=== PATIENT | male | born 1960 | race Caucasian/White ===

== ENCOUNTER 2023-06-18 01:36 | Day surgery (SDC) | payer OTHER, SELFPAY ==
[2023-05-31 08:57] VITALS: BMI 27.0
--- NOTE | 2023-06-17 09:14 | SUR.PREOP ---
Patient called regarding upcoming procedure. Message left on patient's voicemail regarding preop instructions, appointment times, and procedure prep.
[2023-06-18 10:19] VITALS: BP 131/75; PULSE 91; RESP 17; TEMP 36.2; O2SAT 97; BMI 27.6
[2023-06-18 10:33] LABS: Glucose Point of Care 93 mg/dl (65-105)
[2023-06-18] MEDS: LACTATED RINGERS 1,000 ML 150 ML IV CONT (10:33)
--- NOTE | 2023-06-18 10:39 | WPDANESEPPF ---
Anes - Initial Pre Proc Eval Procedure: Operation Date: 06/18/23 11:30 Proposed Procedures p Colonoscopy - Eduin Sofia MD Date/Time: 06/18/23 10:39 Surgeon: Eduin Sofia MD Pre Op Diagnosis: Change in bowel habit, hx of colon polyps Patient Data Age: 62 Gender: M Height: 1.85 m Weight: 95 kg Last Vital Signs Temp 97.1 F L 06/18/23 10:19 Pulse 91 06/18/23 10:19 Resp 17 06/18/23 10:19 BP 131/75 06/18/23 10:19 Pulse Ox 97 06/18/23 10:19 O2 Del Method Room Air 06/18/23 10:19 Allergies Allergy/AdvReac Type Severity Reaction Status Date / Time No Known Allergies Allergy Verified 06/18/23 10:17 Home Medications Medication Instructions Recorded Confirmed Type empagliflozin 25 mg tablet 25 mg PO DAILY 05/15/23 06/18/23 History (Jardiance) gabapentin 100 mg capsule 100 mg PO DAILY 05/15/23 06/18/23 History insulin glargine 100 unit/mL (3 10 unit subcut QPM 05/15/23 06/18/23 History mL) subcutaneous pen (Lantus Solostar U-100 Insulin) polyethylene glycol 3350 17 gram 17 g PO .Q3Days #30 ea 05/15/23 06/18/23 Rx oral powder packet (Miralax) psyllium husk 3.4 gram/5.4 gram 1 tbsp PO DAILY #660 grams 05/15/23 06/18/23 Rx oral powder (Metamucil) tamsulosin 0.4 mg capsule 0.4 mg PO DAILY 05/15/23 06/18/23 History peg 3350-electrolytes 236 240 ml PO Q10M #4,000 mL 05/16/23 06/18/23 Rx gram-22.74 gram-6.74 gram-5.86 gram solution (Golytely) Nulytely 1 dose PO ONCE #4,000 mL 06/03/23 Rx Laboratory Tests 06/18/23 10:30 POC Capillary Glucose 93 mg/dl (65-105) Patient hx anesthesia problems: none Family hx anesthesia problems: none Results Review: All pre-operative results and documents have been reviewed as part of the pre-operative evaluation. [facility] Past Medical History Medical History (Updated 05/15/23 @ 09:23 by Eduin Sofia MD) Diabetes Family History Family History (Updated 05/15/23 @ 08:59 by Anais Escobar MA) Mother History of cancer of unknown primary site Diabetes mellitus Hypertension Social History Social History (Updated 05/15/23 @ 09:00 by Anais Escobar MA) Smoking status: Never smoker Second hand tobacco smoke exposure: No Alcohol intake: never Substance use: never Living arrangements: alone Occupation/Education: occupation Gender identity (if verbalized by the patient): Male Spiritual care concerns: No Anes - Eval Final PreProcedure Day of Procedure 06/18/23 10:39 Patient weight: normal Heart: regular rate and rhythm Lungs: clear to auscultation Airway: Mallampati scale class II Neurological: alert and oriented Last oral intake: >/= 8 hours ASA classification: II Emergent: no Anesthetic plan: proceed Anesthesia type and monitoring: general GIVS and standard monitoring Results Review: All pre-operative results and documents have been reviewed as part of the pre-operative evaluation. Informed Consent: The patient's anesthetic plan and its attendant risks and benefits were discussed with the patient/family/POA. Questions were solicited and answers provided to the satisfaction of the patient/family/POA.
--- NOTE | 2023-06-18 10:47 | PM.HPGS ---
History of Present Illness History of Present Illness Consent: Risks, benefits, and alternatives have been discussed and questions answered. Patient agrees to proceed with procedure. Chief complaint: Change in bowel habit, hx of colon polyps Narrative: Phillip Mercedes is a 62 year old male Presents for colonoscopy. Patient has had a change in bowel habits. He had also has distant history of colon polyps. He notices improvement on taking fiber along with a small amount of MiraLax. He presents today for colonoscopy. Family history noncontributory. Review of Systems Review of Systems: Review of systems noncontributory. [facility] Past Medical History Medical History (Updated 05/15/23 @ 09:23 by Eduin Sofia MD) Diabetes Family History Family History (Updated 05/15/23 @ 08:59 by Anais Escobar MA) Mother History of cancer of unknown primary site Diabetes mellitus Hypertension Social History Social History (Updated 05/15/23 @ 09:00 by Anais Escobar MA) Smoking status: Never smoker Second hand tobacco smoke exposure: No Alcohol intake: never Substance use: never Living arrangements: alone Occupation/Education: occupation Gender identity (if verbalized by the patient): Male Spiritual care concerns: No Meds Home Medications and Allergies Home Medications Medication Instructions Recorded Confirmed Type empagliflozin 25 mg tablet 25 mg PO DAILY 05/15/23 06/18/23 History (Jardiance) gabapentin 100 mg capsule 100 mg PO DAILY 05/15/23 06/18/23 History insulin glargine 100 unit/mL (3 10 unit subcut QPM 05/15/23 06/18/23 History mL) subcutaneous pen (Lantus Solostar U-100 Insulin) polyethylene glycol 3350 17 gram 17 g PO .Q3Days #30 ea 05/15/23 06/18/23 Rx oral powder packet (Miralax) psyllium husk 3.4 gram/5.4 gram 1 tbsp PO DAILY #660 grams 05/15/23 06/18/23 Rx oral powder (Metamucil) tamsulosin 0.4 mg capsule 0.4 mg PO DAILY 05/15/23 06/18/23 History peg 3350-electrolytes 236 240 ml PO Q10M #4,000 mL 05/16/23 06/18/23 Rx gram-22.74 gram-6.74 gram-5.86 gram solution (Golytely) Nulytely 1 dose PO ONCE #4,000 mL 06/03/23 Rx Allergies Allergy/AdvReac Type Severity Reaction Status Date / Time No Known Allergies Allergy Verified 06/18/23 10:17 Vital Signs Vital Signs - 24 hr 06/18/23 10:19 Temperature 97.1 F L Pulse Rate 91 Respiratory Rate 17 Blood Pressure 131/75 Pulse Oximetry 97 Oxygen Delivery Room Air Exam Narrative: Physical exam reveals patient to be alert. Vital signs stable. HEENT exam is unremarkable. Patient is anicteric. Lungs are clear to auscultation and percussion. Heart is without murmur or extra sounds. Abdomen bowel sounds are present soft nontender with no organomegaly. Digital external rectal exam is normal. Assessment and Plan Assessment and plan (1) Change in bowel habit: Code(s): R19.4 - Change in bowel habit Status: Acute Assessment and Plan: Patient's bowel habits improved on taking fiber supplement such as Metamucil daily. He supplements this with MiraLax as needed. Colonoscopy requested will be performed. (2) History of colon polyps: Code(s): Z86.010 - Personal history of colonic polyps Status: Acute Assessment and Plan: Patient has distant history of colon polyps. Follow-up colonoscopy to be performed today.
[2023-06-18 11:48] VITALS: BP 100/66; PULSE 88; RESP 14; O2SAT 97
[2023-06-18 11:58] VITALS: BP 102/68; PULSE 92; RESP 21; O2SAT 97
[2023-06-18 12:04] LABS: Glucose Point of Care 89 mg/dl (65-105)
[2023-06-18 12:08] VITALS: BP 123/75; PULSE 88; RESP 20; O2SAT 97
== END 2023-06-18 12:18 | disposition home or self-care (01) ==
PROVIDERS: Visit Provider Internal Medicine Gastroenterology
PROC: 0DJD8ZZ Inspection of Lower Intestinal Tract, Via Natural or Artificial Opening Endoscopic (ICD-10-PCS; CPT 45378; principal; 2023-06-18 11:30)
DX: D12.5 Benign neoplasm of sigmoid colon (principal); K51.40 Inflammatory polyps of colon without complications; K57.30 Diverticulosis of large intestine without perforation or abscess without bleeding; K64.8 Other hemorrhoids; R19.4 Change in bowel habit; E11.9 Type 2 diabetes mellitus without complications; Z79.84 Long term (current) use of oral hypoglycemic drugs; Z79.4 Long term (current) use of insulin; Z79.899 Other long term (current) drug therapy
CPT/HCPCS: 45385; 82948; 88305; J2704; J7120

== ENCOUNTER 2024-09-23 14:09 | Outpatient (CLI) | payer MEDICARE, OTHER, SELFPAY ==
--- NOTE | ~2024-09-23 | CT_ITS ---
CLINICAL INDICATION: Abdominal distention COMPARISON: 07/09/2011. TECHNIQUE: Multiple contiguous axial images of the abdomen and pelvis were performed following the ad ministration of with 100 mL Omnipaque-350 intravenous contrast The dose-length product (DLP) was 1242.03 mGy-cm. Automated exposure control and iterative reconstruction technique were employed. FINDINGS/OBSERVATIONS: Visualized lower thorax: Elevation of the left hemidiaphragm with adjacent compressive atelectasis. The heart is enlarged, without pericardial effusion. Small hiatal hernia is present. Liver: Findings within the liver (within segments 7 and 4) consistent with patient's previously ident ified hemangiomas. The remainder of the liver demonstrates otherwise homogeneous enhancement and is not enlarged measuri ng 18 cm in longitudinal dimension. Gallbladder and biliary system: The gallbladder is surgically absent Pancreas: The pancreas enhances homogeneously without ductal dilatation. Spleen: The spleen enhances homogeneously and is borderline enlarged measuring 12 cm in longitudinal dimensio n. Kidneys: Redemonstration of parapelvic cysts within the bilateral kidneys, accentuated by the bladder distention. No hydroureter ureter is present. Additional well-circumscribed focus of decreased attenuation within the upper pole of the left kidney , representing a simple cyst which is increased in size but otherwise unchanged from 2011 examination . The remainder of the bilateral kidneys otherwise enhance symmetrically without hydronephrosis or louisa l calculi. Adrenal glands: Unremarkable. Gastrointestinal tract: Mural thickening and hyperemia of the distal stomach and duodenum, an interva l change from prior study for which duodenitis is suspected. Colonic diverticulosis without surrounding inflammatory change. Fecal stasis within the colon and rectum. Appendix: The air-filled appendix is of normal caliber (axial series, images 114 through 121). Vasculature: Unremarkable. Lymph nodes: No pathologically enlarged or morphologically suspicious lymph nodes within the retroperitoneum or at the root of the mesentery. Pelvic structures: The bladder is significantly distended, and otherwise unremarkable. The prostate gland is not enlarged, and contains bulky calcifications. Body wall and musculoskeletal: No significant degenerative disease within the lower thoracic or lumbosacral spine. IMPRESSION: Mural thickening and hyperemia of the distal stomach and duodenum, an interval change from prior stud y for which duodenitis is suspected. Significant bladder distention increasing prominence of the parapelvic cysts within the bilateral kid neys. Reviewed, dictated and finalized at location A. LE APPLICATIONS DEVELOPER IMPRESSION: Mural thickening and hyperemia of the distal stomach and duodenum, an interval change from prior study for which duodenitis is suspected. Significant bladder distention increasing prominence of the parapelvic cysts wi thin the bilateral kidneys.
[2024-09-23 14:34] LABS: Estimated Glomerular Filt Rate 55
--- OUTSIDE RECORDS SUMMARY | 2024-09-23 15:54 | XMS_ITS | Referral Summary ---
Author Organization [facility] [address] [place] [address] [place] [phone] Care Team Providers Care Agricultural Engineering Teacher Name Role Phone Aldo De La Garza MD Primary Care Provider [phone] Austyn FAY MD, Zachary Alford [phone] Encounters Date Type Department Care Team Description 09/16/2024 Telephone [facility] [address] [place] [phone] Nleida Carrizales RN 09/16/2024 Telephone [facility] Center [address] [place] [phone] Itzel Ramirez, SUSAN 09/12/2024 8:45 AM DRIVEMATIC MACHINE OPERATOR Office Visit [facility] Otolaryngology [address] [place] [phone] Zachary Zaman II, MD Post-nasal drainage (Primary Dx); Nasal crusting; Gustatory rhinitis 08/03/2024 3:45 PM DRIVEMATIC MACHINE OPERATOR Office Visit [facility] Otolaryngology [address] [place] [phone] Zachary Zaman II, MD Epistaxis (Primary Dx); Nasal crusting from Last 3 Months Allergies No known active allergies Medications atorvastatin (LIPITOR) 80 mg tablet Take 1 tablet (80 mg total) by mouth nightly 10/14/19 25 Active gabapentin (NEURONTIN) 300 mg capsule Take 1 capsule (300 mg total) by mouth nightly 4 11/13/19 25 Active polyethylene glycol (MIRALAX) 17 gram/dose bulk powder Take 17 g by mouth daily 4 Active empagliflozin (Jardiance) 25 mg tablet Take 1 tablet (25 mg total) by mouth daily 3 Active Trulicity 0.75 mg/0.5 mL pen injector 4 12/24/19 25 Active escitalopram (LEXAPRO) 10 mg tablet 4 12/25/19 25 Active EPINEPHrine 0.3 mg/0.3 mL auto-injection syringeIndicatio ns:Anaphylaxis Inject 0.3 mL (0.3 mg total) into the muscle as instructed as needed for anaphylaxis 1 each 1 4 Active allerg xt,D.farinae-D.p teronys 12 SQ-HDM tablet, sublingualIndica tions:House dust mite allergy Place 1 tablet under the tongue daily 30 tablet 3 4 Active Lactobac. rhamnosus GG-inulin 10 billion cell -200 mg tablet,chewable Take 1 tablet/capsule by mouth daily 60 billion probiotics Active ascorbic acid (vitamin C) 1,000 mg tablet Take 1 tablet (1,000 mg total) by mouth nightly Active tamsulosin (FLOMAX) 0.4 mg extended release capsule Take 1 capsule (0.4 mg total) by mouth nightly Active UNABLE TO FIND Med Name: activated b/with SRT supplements for promotes mental health- once daily Active epmaf-xk8-tlh-ep r-kq6-huw-astx 1,500-165-67.5 mg capsule Take 1 tablet/capsule by mouth nightly Active UNABLE TO FIND Med Name: mag pure malate- supplements once daily Active insulin glargine 100 unit/mL vial for injection Inject 25 Units under the skin daily Lantus Active insulin lispro (HumaLOG, ADMELOG) 100 unit/mL vial for injection Inject 5 Units under the skin 3 (three) times a day before meals He does not have SS Active blood-glucose transmitter ([employer] G6 Transmitter) device Abdomen 4 01/23/20 25 Active HYDROcodone-acet aminophen (NORCO) 7.5-325 mg per tabletIndication s:Pain Take 1 tablet by mouth every 6 (six) hours as needed for pain 20 tablet 4 Active fluticasone propionate (FLONASE) 50 mcg/actuation nasal sprayIndications :Gustatory rhinitis Administer 2 sprays into each nostril daily 1 each 3 4 Active cetirizine (ZyrTEC) 10 mg tabletIndication s:Gustatory rhinitis Take 1 tablet (10 mg total) by mouth daily 30 tablet 3 4 05/25/20 25 Active eucalyptus/peppe rmint oil (PONARIS NASL) Administer into affected nostril(s) Active UNABLE TO FIND Basic care saline Alralol nasal wash Cecilio infused salt wash Active ipratropium (ATROVENT) 42 mcg (0.06 %) nasal sprayIndications :Post-nasal drainage Administer 2 sprays into each nostril 3 (three) times a day 30 mL 3 5 10/13/19 25 Active Active Problems Problem Noted Date Diagnosed Date Post-nasal drainage 09/12/2024 Epistaxis 08/03/2024 Nasal crusting 08/03/2024 Hypertrophy of nasal turbinates 04/21/2024 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 Never 05/13/2024 Q2: How many drinks containi ng alcohol do you have on a typical day when you are drinking? Patient does not drink Q3: How often do you have si x or more drinks on one occasion? Never 05/13/2024 Personal Safety Answer Date Recorded Have you ever been in or are you currently in a harmful physical or emotional relationship or is someone making you feel afraid or unsafe? Denies 05/13/2024 Sex and Gender Information Value Date Recorded Sex Assigned at Not on file Legal Sex Male 7:53 PM DRIVEMATIC MACHINE OPERATOR Gender Identity Not on file Sexual Orientation Not on file Last Filed Vital Signs Vital Sign Reading Time Taken Comments Blood Pressure 128/84 05/13/2024 10:25 AM CDT Pulse 88 05/13/2024 10:25 AM CDT Temperature 36.1 C (97 F) 05/13/2024 9:40 AM CDT Respiratory Rate 18 09/12/2024 8:43 AM DRIVEMATIC MACHINE OPERATOR Oxygen Saturation 92% 05/13/2024 10:25 AM CDT Inhaled Oxygen Concentration - - Weight 111.1 kg (245 lb) 09/12/2024 8:43 AM DRIVEMATIC MACHINE OPERATOR Height 185.4 cm (6' 1 ) 09/12/2024 8:43 AM DRIVEMATIC MACHINE OPERATOR Body Mass Index 32.32 09/12/2024 8:43 AM DRIVEMATIC MACHINE OPERATOR Plan of Treatment Not on file Medical Devices Implanted Type Area Trust Administrative Assistant Device Identifier Shelf Expiration Date Model / Serial / Lot Dental Implant Mouth Description:[place] [address] [place] [address] [place] [address] [facility]IC[facility] Care Teams Agricultural Engineering Teacher Relationship Specialty Start Date End Date Aldo De La Garza MD PCP - General Family Medicine 02/13/24 Zachary Zaman II, MD [address] [place] [address] Consulting Physician Otolaryngology 04/30/24
--- OUTSIDE RECORDS SUMMARY | 2024-09-23 15:54 | XMS_ITS | Clinical Summary ---
Author Organization [facility] [place] Address [address] [place] [address] Care Team Providers Care Secondary English Teacher Name Role Phone Aldo De La Garza MD Primary Care Provider [phone] Austyn FAY MD, Zachary Tono Unavailable [phone] Allergies No known active allergies Medications atorvastatin (LIPITOR) 80 mg tablet Take 1 tablet (80 mg total) by mouth nightly 4 10/14/19 25 Active gabapentin (NEURONTIN) 300 mg [...] for promotes mental health- once daily Active rskfz-mz1-uht-ep r-jw1-rxg-astx 1,500-165-67.5 mg capsule Take 1 tablet/capsule by [...] does not have SS Active blood-glucose transmitter ([employer] G6 Transmitter) device Abdomen 4 01/23/20 25 [...] 03/27/2024 Hypertrophy of both inferior nasal turbinates Encounters Date Type Department Care Team Description 09/16/2024 Telephone [facility] Center [address] [place] [phone] Nelida Carrizales RN 09/16/2024 Telephone [facility] [address] [place] [phone] Itzel Ramirez RN 09/12/2024 8:45 AM MERCHANDISE CLERK Office Visit [facility] Otolaryngology [address] [place] [phone] Zachary Zaman II, MD Post-nasal drainage (Primary Dx); Nasal crusting; Gustatory rhinitis 08/03/2024 3:45 PM MERCHANDISE CLERK Office Visit [facility] Otolaryngology [address] [place] [phone] Zachary Zaman II, MD Epistaxis (Primary Dx); Nasal crusting from Last 3 Months Surgical History Surgery Date Site/Laterality Comments REFRACTIVE SURGERY 07/22/1999 - 07/21/2000 Bilateral lasik CHOLECYSTECTOMY 07/22/2015 - 07/21/2016 COLONOSCOPY ESOPHAGOGASTRODUODENOSCOPY ANTERIOR CRUCIATE LIGAMENT REPAIR 07/22/1990 - 1 Right SINUS SURGERY 05/13/2024 Medical History Medical History Date Comments Diabetes (HCC) Tinnitus HL (hearing loss) Sleep apnea not using cpap Hyperlipidemia Type 2 diabetes mellitus (HCC) BPH (benign prostatic hyperplasia) Neuropathy Wears reading eyeglasses Dental root implant present lowe r Constipation Deviated nasal septum Chronic pansinusitis Uses self-applied continuous glucose monitoring device dexcom on abdomen Obesity Nosebleed Family History Medical History Relation Name Comments Cancer Father Pancreatic Relation Name Status Comments Father Social History Tobacco Use Types Packs/Day Years [...] on file Legal Sex Male 7:53 PM MERCHANDISE CLERK Gender Identity Not on file Sexual Orientation Not on file Obstetrics History Last Filed Vital Signs Vital Sign Reading Time Taken Comments Blood Pressure 128/84 05/13/2024 10:25 AM CDT Pulse 88 05/13/2024 10:25 AM CDT Temperature 36.1 C (97 F) 05/13/2024 9:40 AM CDT Respiratory Rate 18 09/12/2024 8:43 AM MERCHANDISE CLERK Oxygen Saturation 92% 05/13/2024 10:25 AM CDT Inhaled Oxygen Concentration - - Weight 111.1 kg (245 lb) 09/12/2024 8:43 AM MERCHANDISE CLERK Height 185.4 cm (6' 1 ) 09/12/2024 8:43 AM MERCHANDISE CLERK Body Mass Index 32.32 09/12/2024 8:43 AM MERCHANDISE CLERK Plan of Treatment Health Maintenance Due Date Last Done Comments Colon Cancer Screening-Colonoscopy 1959 Depression Screening 1959 Hepatitis C Screening 1959 Prostate Cancer Screening-PSA 1959 Pneumococcal vaccine 65+ (1 of 1 - PCV) 2009 Covid-19 Vaccine (2023-2 5 season) 2024 07/08/2023, 06/13/2021, 11/04/2020, Additional history exists Influenza Vaccine (#1) 2024 , 05/22/2022, 06/14/2021, Additional history exists Well Visit 65+ 2024 Fall Risk Assessment 05/13/2025 05/13/2024 DTaP/Tdap/Td Vaccine (3 - Td or Tdap) 09/15/2029 09/15/2019, 06/03/2017, 04/03/1999, Additional history exists Hepatitis B Screening Completed 08/11/2002 , 04/26/2002, 05/03/2001 Zoster Vaccine Completed 07/08/2023, 08/23, 09/15/2019, Additional history exists Medical Devices Implanted Type Area Institution Director Device Identifier Shelf Expiration Date Model / Serial / Lot Dental Implant Mouth Description:Lower Insurance MEDICARE [facility] MEDICARE FOR [facility] Care Teams Secondary English Teacher Relationship Specialty Start Date End Date Aldo De La Garza MD PCP - General Family Medicine 02/13/24 Zachary Zaman II, MD [address] [place] [address] Consulting Physician Otolaryngology 04/30/24
--- OUTSIDE RECORDS SUMMARY | 2024-09-23 15:54 | XMS_ITS | Clinical Summary ---
Author Organization [facility] Address [address] [place] [address] Care Team Providers Care Stainless Steel Finisher Name Role Phone Aldo De La Garza MD Primary Care Provider [phone] Allergies No known active allergies Medications polyethylene glycol (GLYCOLAX) packet polyethylene glycol 3350 17 gram/dose oral powder Take 17 g every day by oral route. 08/27/19 23 Active tamsulosin (FLOMAX) 0.4 MG Cap tamsulosin 0.4 mg capsule Take 1 capsule every day by oral route. Active traZODone (DESYREL) 50 MG tablet nightly at bedtime. 12/27/19 23 Active atorvastatin (LIPITOR) 80 MG tablet atorvastatin 80 mg tablet Active JARDIANCE 25 MG tablet daily. 01/10/20 23 Active gabapentin (NEURONTIN) 300 MG capsule gabapentin 300 mg capsule Take 1 capsule every day by oral route. Active LANTUS SOLOSTAR 100 UNIT/ML injection (PEN) Lantus Solostar U-100 Insulin 100 unit/mL (3 mL) subcutaneous pen Inject 25 units every day by subcutaneous route at bedtime. 09/13/19 23 Active BD PEN NEEDLE MAT 2ND GEN 32G X 4 MM Misc 12/27/19 23 Active Melatonin 5 MG Chew Tab nightly. 06/21/20 22 Active penicillin VK 500 MG tablet penicillin V potassium 500 mg tablet Active LINZESS 72 MCG capsule 03/09/20 24 Active fluticasone propionate (FLONASE) 50 MCG/ACT nasal spray Take or use exactly as directed.For the nose. 12/26/19 24 025 Active escitalopram (LEXAPRO) 10 MG tablet May cause drowsiness.Take or use exactly as directed.Obtain advice for OTCs.May impair driving.Check with your doctor before becoming . 12/26/19 24 025 Active TRULICITY 0.75 MG/0.5ML injection refrigerateCheck with your doctor before becoming .Store in original package. 12/26/19 24 025 Active cetirizine (ZYRTEC) 10 MG tablet May cause drowsiness.Obtain advice for OTCs. 12/26/19 24 025 Active fluticasone propionate (FLONASE) 50 MCG/ACT nasal sprayIndication s:Allergic rhinitis due to pollen, unspecified seasonality 1 spray by Nasal route daily. 16 g 6 03/26/20 24 Active insulin lispro, 1 Unit Dial, (HUMALOG) 100 UNIT/ML injection (PEN) 09/18/19 24 025 Active Problems Problem Noted Date Diagnosed Date Tachycardia 01/09/2023 Type 2 diabetes mellitus ([facility]) 08/26 Hyperlipidemia 09/15/2019 Encounters Date Type Department Care Team Description 08/20/2024 Scan [employer] INFO SRVCS Scanned, Doc Med [facility] 08/20/2024 Telephone [facility] [address] [address] Luis Olguin, Orders 08/07/2024 Scan [facility] HEALTH INFO SRVCS Scanned, Doc Med [facility] 07/14/2024 8:30 AM MANAGER REQUIREMENTS [facility] - [address], [address] [place] [address] Luis Olguin, Follow Up 07/14/2024 Telephone [facility] - [address], [address] [place] [address] OlguinLuis medrano, DO Information 07/14/2024 Travel 07/13/2024 Scan HEALTH INFO SRVCS Scanned, Doc Med [facility] Sleep Study (SCAN) from Last 3 Months Immunizations Name Administration Dates Next Due Anthrax Vaccine 02/27/2004,09/25/2003,08/28/2003 Fluzone 6 Months+ Quad (0.5 mL Prefilled Syringe) 06/05/2019 H1N1 Injectable 2008 Influenza 08/26/2009 Hepatitis A (Havrix [address]) 10/24/1996,1996,05/11/1996 Hepatitis B (Generic: Adult) 08/11/2002,04/26/20 02,05/03/2001 Influenza (FluMist) 04/09/2011,05/27/2009,2004 Influenza (Generic) 05/05/2020, 5,05/14/2014,07/27,10/20/2005,06/06/2005,08/28/2003 ,05/22/2002,05/03/2001,07/27/2000,11/1998,04/23/1998,04/22/1998, 6 Influenza Adult (Generic) 05/22/2023,07/2021,06/14/2021,06/05,06/03/2017,05/16/2016,05/16/2015 MMR (MMRII) 04/23/1993 Meningococcal (Menomune) 04/26/2002,10/24/1996,0 10/20/1996 PFIZER COVID-19 (ORIGINAL FO RMULATION, PURPLE CAP) mRNA, LNP-S, PF, 30 MCG/0.3 ML DOSE 06/13/2021 Polio Opv (Generic) 05/22/1979 Shingrix 07/08/2023, 0,09/15/2019,07/07 Small Pox 08/28/2003 Td (TDVAX) 04/03/1999,02/19/1989 Tdap (Generic) 09/15/2019,06/03/2017 Typhoid Oral (Vivotif) 04/03/1999 Typhoid Vaccine, Akd 05/11/1996,04/21/1996 Typhoid Vi Polysaccharide Va cc 25 Mcg/0.5Ml Im Soln 06/23/2006,02/27/2004 Yellow Fever (YF- Vax) 04/26/2002,10/20/1989 Family History Medical History Relation Comments Crohns Disease Brother Cancer Father Coronary artery disease Father Diabetes Father Diabetes Mother Relation Status Comments Brother Father Mother Social History Tobacco Use Types Packs/Day Years Used Date Smoking Tobacco: Never Smokeless Tobacco: Never Tobacco Cessation:Counseling Given: Yes Alcohol Use Standard Drinks/Week Comments Never 0 (1 standard drink = 0.6 oz pur e alcohol) Sex and Gender Information Value Date Recorded Sex Assigned at Not on file Legal Sex Male 5:15 PM CDT Gender Identity Not on file Sexual Orientation Not on file Last Filed Vital Signs Vital Sign Reading Time Taken Comments Blood Pressure 111/76 07/14/2024 8:08 AM MANAGER REQUIREMENTS Pulse 94 07/14/2024 8:08 AM MANAGER REQUIREMENTS Temperature 36.4 C (97.5 F) 03/26/2024 7:35 AM CDT Respiratory Rate 16 07/14/2024 8:08 AM MANAGER REQUIREMENTS Oxygen Saturation 95% 07/14/2024 8:08 AM MANAGER REQUIREMENTS ra Inhaled Oxygen Concentration - - Weight 111.6 kg (246 lb) 07/14/2024 8:08 AM MANAGER REQUIREMENTS Height 185.4 cm (6' 1 ) 07/14/2024 8:08 AM MANAGER REQUIREMENTS Body Mass Index 32.46 07/14/2024 8:08 AM MANAGER REQUIREMENTS Plan of Treatment Upcoming Encounters Date Type Department Care Team (Late st Contact Info) Description 07/13/2025 8:20 AM MANAGER REQUIREMENTS Office Visit [facility] Mult[facility]ty Care - [facility] [address] [place] [address] Luis Olguin DO [address] [place], [place] [id number] Health Maintenance Due Date Last Done Comments Colorectal Cancer Screening Colonoscopy (10 Years) 1959 Kidney Health Evaluation 1959 Lipid Panel 1959 Pneumococcal Vaccine: 65+ Years (1 of 2 - PCV) 1965 Pneumococcal Vaccine: Pediatrics (0 to 5 Years) and At-Risk Patients (6 to 64 Years) (1 of 2 - PCV) 1965 Diabetes: Retinopathy Eye Exam 1977 Hepatitis C 1977 RSV Immunization or 60+ Years (1 - Risk 60-74 years 1-dose series) 2019 COVID-19 Vaccine (2 - season) 2024 06/13/2021 Influenza Adult (#1) 2024 05/22/2023, 05/22/2022, 06/14/2021, Additional history exists PHQ-2 (Physician [place]) 07/22/2024 Hemoglobin A1C 10/29/2024 04/30/2024 DTaP, Tdap and Td Vaccines (3 - Td or Tdap) 09/15/2029 09/15/2019, 06/03/2017, 04/03/1999, Additional history exists Meningococcal Vaccine Aged Out 04/26/2002 , 10/24/1996, 10/20/1996 No longer eligible based on patient's age to complete this topic Zoster Vaccines Completed 07/08/2023, 08/23, 09/15/2019, Additional history exists Meningococcal B Vaccine Aged Out No l onger eligible based on patient's age to complete this topic RSV Immunizations Under 20 Months Aged Out No longer eligible based on patient's age to complete this topic Procedures Procedure Name Priority Date/Time Associated Diagnosis Comments SLEEP STUDY GENERIC (SCAN ORDER) 07/13/2024 from Last 3 Months Results * SLEEP STUDY GENERIC (SCAN ORDER) (07/13/2024) 07/13/2024 us Doc Med [facility] Scanned SCANNING Final Resu lt from Last [address] [place] [address] MEDICARE Care Teams Stainless Steel Finisher Relationship Specialty Start Date End Date Aldo De La Garza MD [address] [address] PCP - General FAMILY PRACTICE 12/31/22
== END 2024-09-23 14:10 | disposition home or self-care (01) ==
LOC: ANHIMG 14:16
PROVIDERS: Visit Provider Nurse Practitioner Family
DX: R14.0 Abdominal distension (gaseous) (principal); K58.9 Irritable bowel syndrome, unspecified; R19.4 Change in bowel habit; N28.1 Cyst of kidney, acquired
CPT/HCPCS: 74177; Q9967

== ENCOUNTER 2024-11-20 00:35 | Day surgery (SDC) | payer MEDICARE, OTHER, SELFPAY ==
[2024-11-11 09:56] VITALS: BMI 32.3
--- OUTSIDE RECORDS SUMMARY | 2024-11-20 00:38 | XMS_ITS | Referral Summary ---
Author Organization [facility] [address] Address [address] [place] [address] Care Team Providers Care Historical Society Director Name Role Phone Aldo De La Garza MD Primary Care Provider [phone]- [phone] Austyn FAY MD, Zachary Alford [phone] Encounters Date Type Department Care Team Description 10/01/2024 [facility] [address] [place] [phone] Nelida Carrizales, SUSAN 09/16/2024 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 Allergies No known active allergies Medications atorvastatin (LIPITOR) 80 mg tablet Take 1 tablet (80 mg total) by mouth nightly 4 Active gabapentin (NEURONTIN) 300 mg capsule Take 1 capsule (300 mg total) by mouth nightly 4 Active polyethylene glycol (MIRALAX) 17 gram/dose bulk [...] for promotes mental health- once daily Active [id number]-[id number] 1,500-165-67.5 mg capsule Take 1 tablet/capsule by [...] does not have SS Active blood-glucose transmitter (Dexcom G6 Transmitter) device Abdomen 4 01/23/20 25 [...] times a day 30 mL 3 5 Active Active Problems Problem Noted Date Diagnosed [...] on file Legal Sex Male 7:53 PM HANDICRAFT OR HOBBY SHOP MANAGER Gender Identity Not on file Sexual Orientation Not on file Last Filed Vital Signs Vital Sign Reading Time Taken Comments Blood Pressure 128/84 05/13/2024 10:25 AM CDT Pulse 88 05/13/2024 10:25 AM CDT Temperature 36.1 C (97 F) 05/13/2024 9:40 AM CDT Respiratory Rate 18 09/12/2024 8:43 AM HANDICRAFT OR HOBBY SHOP MANAGER Oxygen Saturation 92% 05/13/2024 10:25 AM CDT Inhaled Oxygen Concentration - - Weight 111.1 kg (245 lb) 09/12/2024 8:43 AM HANDICRAFT OR HOBBY SHOP MANAGER Height 185.4 cm (6' 1 ) 09/12/2024 8:43 AM HANDICRAFT OR HOBBY SHOP MANAGER Body Mass Index 32.32 09/12/2024 8:43 AM HANDICRAFT OR HOBBY SHOP MANAGER Plan of Treatment Not on file Medical Devices Implanted Type Area Fastener Sewing Machine Operator Device Identifier Shelf Expiration Date Model / Serial / Lot Dental Implant Mouth Description:[place] [address] MEDICARE [employer] MEDICARE [facility] Address: [facility] [address] [place] [address] FOR [employer] Care Teams Historical Society Director Relationship Specialty Start Date End Date Aldo De La Garza MD PCP - General Family Medicine 02/13/24 Zachary Zaman II, MD [address] [place] [address] Consulting Physician Otolaryngology 04/30/24
--- OUTSIDE RECORDS SUMMARY | 2024-11-20 00:38 | XMS_ITS | Clinical Summary ---
Author Organization [facility] Address [address] [place] [address] Care Team Providers Care Capacitor Assembler Name Role Phone Aldo De La Garza MD Primary Care Provider [phone]- [phone] Austyn FAY MD, Zachary Tono Unavailable [phone] Allergies No known active allergies Medications atorvastatin [...] for promotes mental health- once daily Active [id number]-ep y-[id number]-[id number]-[id number] 1,500-165-67.5 mg capsule Take 1 tablet/capsule by [...] does not have SS Active blood-glucose transmitter ([employer] G6 Transmitter) device Abdomen 4 01/23/20 25 [...] Date Type Department Care Team Description 10/01/2024 Telephone [facility] [address] [place] [phone] Nelida Carrizales RN 09/16/2024 Telephone [facility] [address] [place] [phone] Nelida Carrizales RN 09/16/2024 Telephone [facility] [address] [place] [phone] Itzel Ramirez RN 09/12/2024 8:45 AM HAND DEICER ELEMENT WINDER Office Visit [facility] Otolaryngology [address] [place], [place] [address] [address] Zachary Zaman II, MD Post-nasal drainage (Primary Dx); Nasal crusting; 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 Surgical History Surgery [...] on file Legal Sex Male 7:53 PM HAND DEICER ELEMENT WINDER Gender Identity Not on file Sexual Orientation Not on file Obstetrics History Last Filed Vital Signs Vital Sign Reading Time Taken Comments Blood Pressure 128/84 05/13/2024 10:25 AM CDT Pulse 88 05/13/2024 10:25 AM CDT Temperature 36.1 C (97 F) 05/13/2024 9:40 AM CDT Respiratory Rate 18 09/12/2024 8:43 AM HAND DEICER ELEMENT WINDER Oxygen Saturation 92% 05/13/2024 10:25 AM CDT Inhaled Oxygen Concentration - - Weight 111.1 kg (245 lb) 09/12/2024 8:43 AM HAND DEICER ELEMENT WINDER Height 185.4 cm (6' 1 ) 09/12/2024 8:43 AM HAND DEICER ELEMENT WINDER Body Mass Index 32.32 09/12/2024 8:43 AM HAND DEICER ELEMENT WINDER Plan of Treatment Health Maintenance Due Date [...] history exists Medical Devices Implanted Type Area Rv Parts And Service Director Device Identifier Shelf Expiration Date Model / Serial / Lot Dental Implant Mouth Description:Lower Insurance MEDICARE [employer] [place] MEDICARE FOR LIFE Care Teams Capacitor Assembler Relationship Specialty Start Date End Date Aldo De La Garza MD PCP - General Family Medicine 02/13/24 Zachary Zaman II, MD [address] [place] [address] Consulting Physician Otolaryngology 04/30/24
--- OUTSIDE RECORDS SUMMARY | 2024-11-20 00:38 | XMS_ITS | Clinical Summary ---
Author Organization [facility] Address [address] [place] [address] Care Team Providers Care Vocational Technical Education Director Name Role Phone Aldo De La Garza MD Primary Care Provider [phone] Allergies No known active allergies Medications polyethylene [...] Unit Dial, (HUMALOG) 100 UNIT/ML injection (PEN) 09/23/19 25 Active Active Problems Problem Noted Date Diagnosed Date Tachycardia 01/09/2023 Type 2 diabetes mellitus ([facility]) 08/26 Hyperlipidemia 09/15/2019 Encounters Date Type Department Care Team Description 10/21/2024 7:30 AM CDT Office Visit [facility] [address] [place] [address] Luis Olguin, Follow Up 10/21/2024 Scan HEALTH INFO SRVCS Scanned, Doc Med Group 10/21/2024 Travel 10/15/2024 Scan HEALTH INFO SRVCS Scanned, Doc Med Group 10/14/2024 3:54 PM CDT - 10/14/2024 11:59 PM CDT Hospital Encounter [facility] [place] [address] Aldo De La Garza MD Discharge Disposition: Home or Self Care (Routine Discharge) 10/14/2024 Travel 10/12/2024 Telephone [facility] - [facility] [address] [place] [address] Luis Olguin DO Records from Last 3 Months Immunizations Immunization Administration Dates Next Due Anthrax Vaccine 02/27/2004,09/25/2003,08/28/2003 [...] Sign Reading Time Taken Comments Blood Pressure 112/71 10/21/2024 7:22 AM CDT Pulse 102 10/21/2024 7:22 AM CDT Temperature 36.3 C (97.4 F) 10/21/2024 7:22 AM CDT Respiratory Rate 18 10/21/2024 7:22 AM CDT Oxygen Saturation 95% 10/21/2024 7:22 AM CDT RA Inhaled Oxygen Concentration - - Weight 110.2 kg (243 lb) 10/21/2024 7:22 AM CDT Height 185.4 cm (6' 1 ) 10/21/2024 7:22 AM CDT Body Mass Index 32.06 10/21/2024 7:22 AM CDT Plan of Treatment Upcoming Encounters Date Type Department Care Team (Late st Contact Info) Description 10/26/2025 11:00 AM CDT Office Visit [facility] Medical Group Multispecialty Care - [facility] [address] [address] [place] [phone] Luis Olguin DO [address] [place] [address] Health Maintenance Due Date Last Done Comments Colorectal Cancer Screening Colonoscopy (10 Years) 1959 Kidney Health Evaluation 1959 Lipid Panel 1959 Diabetes: Retinopathy Eye Exam 1977 Hepatitis C 1977 Pneumococcal Vaccine: 50+ Years (1 of 2 - PCV) 1978 RSV Immunization or 60+ Years (1 - Risk 60-74 years 1-dose series) 2019 COVID-19 Vaccine (2 - season) 2024 06/13/2021 PHQ-2 (Physician [place]) 07/22/2024 Hemoglobin A1C 10/29/2024 04/30/2024 DTaP, Tdap [...] Procedure Name Priority Date/Time Associated Diagnosis Comments XR CHEST PA+LAT Routine 10/14/2024 4:11 PM CDT Chronic cough from Last 3 Months Results * XR CHEST PA+LAT (10/14/2024 4:11 PM CDT) Anatomical Region Laterality Modality Chest Radiographic Soni ging 10/15/2024 8:50 AM CDT Impressions 10/15/2024 8:50 AM CDT IMPRESSION: Mild bibasilar opacities which may reflect infection or aspiration. Referred By: Interpreted By: Clemente Hemphill MD, 10/15/2024 8:50 AM Narrative 10/15/2024 8:50 AM CDT [facility] [address] [place], [place] [address] XR CHEST PA+LAT INDICATION: chronic cough TECHNIQUE: PA and lateral views of the chest. COMPARISON: Prior chest radiograph not available for comparison. FINDINGS: The cardiomediastinal silhouette is within normal limits. No pulmonary vascular congestion. Mild interstitial opacities at the medial right lung base and left lung base. No pleural effusions or pneumothorax. Mild thoracic spondylosis. Procedure Note Clemente Hemphill MD - 10/15/2024 [facility] [address] [place], [place] [address] XR CHEST PA+LAT INDICATION: chronic cough TECHNIQUE: PA and lateral views of the chest. COMPARISON: Prior chest radiograph not available for comparison. FINDINGS: The cardiomediastinal silhouette is within normal limits. No pulmonaryvascular congestion. Mild interstitial opacities at the medial right lungbase and left lung base. No pleural effusions or pneumothorax. Mildthoracic spondylosis. IMPRESSION: Mild bibasilar opacities which may reflect infection or aspiration. Referred By: Interpreted By: Clemente Hemphill MD, 10/15/2024 8:50 AM Aldo De La Garza MD GENERAL IMAGING Final Resu lt from Last [address] [place] [address] MEDICARE [facility] Care Teams Vocational Technical Education Director Relationship Specialty Start Date End Date Aldo De La Garza MD [address] [address] PCP - General FAMILY PRACTICE 12/31/22
[2024-11-20 13:11] LABS: Glucose Point of Care 113 mg/dl (65-105)
[2024-11-20 13:13] VITALS: BP 124/80; PULSE 102; RESP 20; TEMP 36; O2SAT 97
[2024-11-20] MEDS: LACTATED RINGERS 1,000 ML 150 ML IV CONT (13:29)
--- NOTE | 2024-11-20 15:41 | P.HP_ITS ---
H&P: HPI History of Present Illness Date/Time: 11/20/24 15:41 Chief Complaint: Dysphagia Narrative: the patient suffers from chronic heartburn and has been experiencing difficulty swallowing solids intermittently. He is referred for EGD. Review of Systems Review of Systems: All systems reviewed & are unremarkable except as noted in HPI and below [facility] Past Medical History Medical History (Updated 11/20/24 @ 15:41 by Morris Soto MD) Diarrhea Abnormal CT scan Tenesmus Mucus in stool Borborygmi Bloating IBS (irritable bowel syndrome) Diabetes Surgical History Surgical History History of cholecystectomy Family History Family History Mother History of cancer of unknown primary site Diabetes mellitus Hypertension Social History Social History Smoking status: Never smoker Second hand tobacco smoke exposure: No Alcohol intake: never Substance use: never Substance use type: does not use Living arrangements: with family Occupation/Education: occupation Gender identity (if verbalized by the patient): Male Spiritual care concerns: No Meds Home Medications and Allergies Home Medications ?Medication ?Instructions ?Recorded ?Confirmed ?Type empagliflozin 25 mg tablet 25 mg PO DAILY 05/15/23 11/20/24 History (Jardiance) gabapentin 100 mg capsule 100 mg PO DAILY 05/15/23 11/20/24 History insulin glargine 100 unit/mL (3 10 unit subcut QPM 05/15/23 11/20/24 History mL) subcutaneous pen (Lantus Solostar U-100 Insulin) polyethylene glycol 3350 17 gram 17 g PO .Q3Days #30 ea 05/15/23 11/11/24 Rx oral powder packet (Miralax) tamsulosin 0.4 mg capsule 0.4 mg PO DAILY 05/15/23 11/20/24 History atorvastatin 80 mg tablet 80 mg PO DAILY 02/27/24 11/20/24 History escitalopram oxalate 10 mg tablet 10 mg PO DAILY 02/27/24 11/20/24 History hydrocortisone acetate 25 mg 25 mg RECTAL DAILY PRN mucus in 08/27/24 10/28/24 Rx rectal suppository (Anusol-HC) stools #12 ea plecanatide 3 mg tablet (Trulance) 3 mg PO DAILY 1 month #30 tabs 08/27/24 11/20/24 Rx dulaglutide 1.5 mg/0.5 mL 1.5 mg subcut WEEKLY 11/11/24 11/20/24 History subcutaneous pen injector (Trulicity) Allergies Allergy/AdvReac Type Severity Reaction Status Date / Time No Known Allergies Allergy Verified 11/20/24 13:12 Vital Signs Vital Signs - 24 hr 11/20/24 13:13 Temperature 96.8 F L Pulse Rate 102 H Respiratory Rate 20 Blood Pressure 124/80 Pulse Oximetry 97 Oxygen Delivery Room Air Exam Const: General: cooperative and healthy appearing Resp: Effort & Inspection: normal respiratory effort and able to speak in complete sentences Auscultation: clear to auscultation bilaterally Cardio: Rate: regular rate Rhythm: regular rhythm GI: Inspection: normal to inspection GI Palp: No No hepatosplenomegaly present Auscultation: normal bowel sounds Rectal Exam: deferred Skin: General skin exam: normal color Psych: Appearance: grossly normal Mental Status: mental status grossly normal Assessment and Plan Assessment and plan (1) Dysphagia: Code(s): R13.10 - Dysphagia, unspecified Status: Acute Assessment and Plan: The patient is deemed a good candidate for the procedure. Consent signed. Will proceed.
--- NOTE | 2024-11-20 15:41 | P.PNAN_ITS ---
Anes - Initial Pre Proc Eval Procedure: Operation Date: 11/20/24 14:30 Proposed Procedures p Esophagogastroduodenoscopy - Morris Soto MD Date/Time: 11/20/24 15:41 Surgeon: Morris Soto MD Pre Op Diagnosis: Other specified symptoms and signs involving the d Patient Data Age: 64 Gender: M Height: 1.85 m Weight: 111.7 kg Last Vital Signs Temp 96.8 F L 11/20/24 13:13 Pulse 102 H 11/20/24 13:13 Resp 20 11/20/24 13:13 BP 124/80 11/20/24 13:13 Pulse Ox 97 11/20/24 13:13 O2 Del Method Room Air 11/20/24 13:13 Allergies Allergy/AdvReac Type Severity Reaction Status Date / Time No Known Allergies Allergy Verified 11/20/24 13:12 Home Medications ?Medication ?Instructions ?Recorded ?Confirmed ?Type empagliflozin 25 mg tablet 25 mg PO DAILY 05/15/23 11/20/24 History (Jardiance) gabapentin 100 mg capsule 100 mg PO DAILY 05/15/23 11/20/24 History insulin glargine 100 unit/mL (3 10 unit subcut QPM 05/15/23 11/20/24 History mL) subcutaneous pen (Lantus Solostar U-100 Insulin) polyethylene glycol 3350 17 gram 17 g PO .Q3Days #30 ea 05/15/23 11/11/24 Rx oral powder packet (Miralax) tamsulosin 0.4 mg capsule 0.4 mg PO DAILY 05/15/23 11/20/24 History atorvastatin 80 mg tablet 80 mg PO DAILY 02/27/24 11/20/24 History escitalopram oxalate 10 mg tablet 10 mg PO DAILY 02/27/24 11/20/24 History hydrocortisone acetate 25 mg 25 mg RECTAL DAILY PRN mucus in 08/27/24 10/28/24 Rx rectal suppository (Anusol-HC) stools #12 ea plecanatide 3 mg tablet (Trulance) 3 mg PO DAILY 1 month #30 tabs 08/27/24 11/20/24 Rx dulaglutide 1.5 mg/0.5 mL 1.5 mg subcut WEEKLY 11/11/24 11/20/24 History subcutaneous pen injector (Trulicity) Laboratory Tests 11/20/24 13:04 POC Capillary Glucose 113 H mg/dl (65-105) Patient hx anesthesia problems: none Family hx anesthesia problems: none Results Review: All pre-operative results and documents have been reviewed as part of the pre- operative evaluation. [facility] Past Medical History Medical History Diarrhea Abnormal CT scan Tenesmus Mucus in stool Borborygmi Bloating IBS (irritable bowel syndrome) Diabetes Surgical History Surgical History History of cholecystectomy Family History Family History Mother History of cancer of unknown primary site Diabetes mellitus Hypertension Social History Social History Smoking status: Never smoker Second hand tobacco smoke exposure: No Alcohol intake: never Substance use: never Substance use type: does not use Living arrangements: with family Occupation/Education: occupation Gender identity (if verbalized by the patient): Male Spiritual care concerns: No Anes - Eval Final PreProcedure Day of Procedure 11/20/24 15:41 Patient weight: obese Lungs: normal air movement Airway: Mallampati scale class III Neurological: alert and oriented Last oral intake: >/= 8 hours ASA classification: III Emergent: no Anesthetic plan: proceed Anesthesia type and monitoring: general GIVS and standard monitoring Results Review: All pre-operative results and documents have been reviewed as part of the pre- operative evaluation. Hyperlipidemia, STEFF on CPAP, DM fsbs 113, pt has neuropathy. Exercises at gym 4 x weekly, no cp or sob. Informed Consent: The patient's anesthetic plan and its attendant risks and benefits were discussed with the patient/family/POA. Questions were solicited and answers provided to the satisfaction of the patient/family/POA.
[2024-11-20 15:58] VITALS: BP 140/91; PULSE 96; RESP 20; O2SAT 99
[2024-11-20 16:08] VITALS: BP 150/95; PULSE 94; RESP 22; O2SAT 98
[2024-11-20 16:18] VITALS: BP 137/91; PULSE 93; RESP 20; O2SAT 98
== END 2024-11-20 16:25 | disposition home or self-care (01) ==
PROVIDERS: Referring Provider Nurse Practitioner Family; Visit Provider Internal Medicine Gastroenterology
PROC: 0DJ08ZZ Inspection of Upper Intestinal Tract, Via Natural or Artificial Opening Endoscopic (ICD-10-PCS; CPT 43235; principal; 2024-11-20 14:30)
DX: K22.2 Esophageal obstruction (principal); K31.84 Gastroparesis; E11.9 Type 2 diabetes mellitus without complications; K58.9 Irritable bowel syndrome, unspecified; E66.9 Obesity, unspecified; Z68.32 Body mass index [BMI] 32.0-32.9, adult; Z79.84 Long term (current) use of oral hypoglycemic drugs; Z79.4 Long term (current) use of insulin; Z79.85 Long-term (current) use of injectable non-insulin antidiabetic drugs; Z90.49 Acquired absence of other specified parts of digestive tract; Z80.9 Family history of malignant neoplasm, unspecified
CPT/HCPCS: 43235; 82948; J2003; J2704; J7120

== ENCOUNTER 2025-04-08 00:15 | Day surgery (SDC) | payer MEDICARE, OTHER, SELFPAY ==
[2025-03-30 08:53] VITALS: BMI 32.5
--- OUTSIDE RECORDS SUMMARY | 2025-04-08 00:19 | XMS_ITS | Clinical Summary ---
Author Organization [facility] Address [address] [place] [address] Care Team Providers Care Telesales Team Leader Name Role Phone Aldo De La Garza MD Primary Care Provider [phone] Allergies No known active allergies Medications polyethylene glycol (GLYCOLAX) packet polyethylene glycol 3350 17 gram/dose oral powder Take 17 g every day by oral route. 3 Active tamsulosin (FLOMAX) 0.4 MG Cap tamsulosin 0.4 mg capsule Take 1 capsule every day by oral route. Active traZODone (DESYREL) 50 MG tablet nightly at bedtime. 3 Active atorvastatin (LIPITOR) 80 MG tablet atorvastatin 80 mg tablet Active JARDIANCE 25 MG tablet daily. 3 Active gabapentin (NEURONTIN) 300 MG capsule gabapentin 300 mg capsule Take 1 capsule every day by oral route. Active LANTUS SOLOSTAR 100 UNIT/ML injection (PEN) Lantus Solostar U-100 Insulin 100 unit/mL (3 mL) subcutaneous pen Inject 25 units every day by subcutaneous route at bedtime. 3 Active BD PEN NEEDLE MAT 2ND GEN 32G X 4 MM Misc 3 Active Melatonin 5 MG Chew Tab nightly. 2 Active penicillin VK 500 MG tablet penicillin V potassium 500 mg tablet Active LINZESS 72 MCG capsule 4 Active fluticasone propionate (FLONASE) 50 MCG/ACT nasal sprayIndication s:Allergic rhinitis due to pollen, unspecified seasonality 1 spray by Nasal route daily. 16 g 6 4 Active insulin lispro, 1 Unit Dial, (HUMALOG) 100 UNIT/ML injection (PEN) 5 Active Active Problems Problem Noted Date Diagnosed Date Tachycardia 01/09/2023 Type 2 diabetes mellitus ([facility]) 08/26 Hyperlipidemia 09/15/2019 Encounters Date Type Department Care Team Description 03/17/2025 12:25 PM CDT - 03/17/2025 11:59 PM CDT Hospital Encounter [facility] [place] [address] Carlos Eduardo Brady MD Discharge Disposition: Home or Self Care (Routine Discharge) 03/17/2025 Travel 01/19/2025 Scan [employer] Elite SRVCS Scanned, [facility] 01/19/2025 Telephone [facility] [address] [phone] Luis Olguin, Question 01/11/2025 Scan Data Elite SRVCS Scanned, [facility] from Last 3 Months Immunizations Immunization Administration Dates Next Due Anthrax Vaccine 02/27/2004,09/25/2003,08/28/2003 Fluzone 6 Months+ Quad (0.5 mL Prefilled Syringe) 06/05/2019 H1N1 Injectable 2009 Influenza 08/26/2009 Hepatitis A (Havrix [address]) 10/24/1996,1996,05/11/1996 Hepatitis B (Generic: Adult) 08/11/2002,04/26/20 02,05/03/2001 Influenza (FluMist) 04/09/2011,05/27/2009,2004 Influenza (Generic) 05/05/2020, 5,05/14/2014,07/27,10/20/2005,06/06/2005,08/28/2003 ,05/22/2002,05/03/2001,07/27/2000,11/1998,04/23/1998,04/22/1998, 6 Influenza Adult (Generic) 05/22/2023,07/2021,06/14/2021,06/05,06/03/2017,05/16/2016,05/16/2015 MMR (MMRII) 04/23/1993 Meningococcal (Menomune) 04/26/2002,10/24/1996,0 10/20/1996 PFIZER COVID-19 (ORIGINAL FO RMULATION, PURPLE CAP) mRNA, LNP-S, PF, 30 MCG/0.3 ML DOSE 06/13/2021 Polio Opv (Generic) 05/22/1979 Shingrix 07/08/2023,,09/15/2019,07/07 Small Pox 08/28/2003 Td (TDVAX) 04/03/1999,02/19/1989 Tdap [...] Information Value Date Recorded Sex Assigned at Male 03/25/2025 10:44 AM CDT Legal Sex Male 5:15 PM CDT Gender Identity Male 03/25/2025 10:44 AM CDT Sexual Orientation Not on file Last Filed [...] 7:22 AM CDT Height 185.4 cm (6' 1) 10/21/2024 7:22 AM CDT Body Mass Index 32.06 10/21/2024 7:22 AM CDT Plan of Treatment Upcoming Encounters Date Type Department Care Team (Late st Contact Info) Description 04/13/2025 3:45 PM CDT Appointment [facility] [address] [facility] [place] [address] Carlos Eduardo Brady MD [address] [place] [phone] 10/26/2025 11:00 AM CDT Office Visit [facility] Multispecialty Care - [facility] [address] [facility] [address] [facility] [address] [place] [phone] Luis Olguin DO [address] [facility] [address] [place] [address] Health Maintenance Due Date Last Done Comments Colorectal Cancer Screening Colonoscopy (10 Years) 1959 Kidney Health Evaluation 1959 Lipid Panel 1959 Diabetes: Retinopathy Eye Exam 1977 Hepatitis C 1977 Pneumococcal Vaccine: 50+ Years (1 of 2 - PCV) 1978 RSV Immunization or 60+ Years (1 - Risk 60-74 years 1-dose series) 2019 PHQ-2 (Physician [place]) 07/22/2024 Hemoglobin A1C 10/29/2024 04/30/2024 COVID-19 Vaccine ( season) 2025 06/13/2021, 11/04/2020, 10/14/2020 DTaP, Tdap and Td Vaccines (3 - [...] Procedure Name Priority Date/Time Associated Diagnosis Comments CT ABD+PEL WO CON STAT 03/17/2025 1:0 4 PM CDT Bilateral flank pain Unspecified abdominal pain XR FOOT LT 3V Routine 03/17/2025 12:56 PM CDT Pain in left foot from Last 3 Months Results * CT ABD+PEL WO CON (03/17/2025 1:04 PM CDT) Anatomical Region Laterality Modality Abdomen Computed Tomogra phy 03/17/2025 1:56 PM CDT Impressions 03/17/2025 2:16 PM CDT IMPRESSION: 1. No convincing acute other significant localizing abdominal pelvic process seen to provide a potential expiration for the patient's and. 2. Left renal solitary nonobstructing 5.5 mm stone 3. Bilateral renal parapelvic and parenchymal hypodense lesions incompletely assessed without contrast but statistically most likely representing cysts.. 4. Colonic diverticulosis without diverticulitis . 5. Other nonemergent, incidental, stable and potential chronic findings as discussed in the report body above. Ordered By: CARLOS EDUARDO BRADY Interpreted By: Valeria Razo MD, 03/17/2025 1:56 PM Narrative 03/17/2025 2:16 PM CDT [facility] [address] [place], [place] [address] Exam: CT abdomen and pelvis without contrast Exam Date/Time: 03/17/2025 1:04 PM Indication: 74 male. Bilateral flank pain Comparison: CT abdomen pelvis 01/29/2009 Technique: Computed tomography of the abdomen and pelvis was performed without contrast. A dose lowering technique was used for this procedure, which may include, but is not limited to, dose reduction technique, automated exposure control, the use of iterative reconstruction, and ALARA (As Low As Reasonably Achievable) / Image Gently techniques. CT findings: LOWER CHEST Normal cardiac size. No pericardial or pleural effusion. Lingular focal subsegmental atelectasis. Subtle left inferior lower lobe bronchiolectasis and probably left greater than right subsegmental atelectasis. No convincing acute finding Limited noncontrast assessment of the soft tissues of viscera. UPPER ABDOMEN Liver and bile ducts: Unenhanced liver is unremarkable. Normal size and contour. Lateral segment left hepatic lobe subcentimeter hypodensity, nonspecific and too small to characterize. No other focal finding. No intra or extrahepatic biliary tree dilatation. Gallbladder: Cholecystectomy Pancreas: Unenhanced pancreas is unremarkable. Spleen: Unenhanced spleen is unremarkable RETROPERITONEUM Adrenals: Normal Kidneys left renal lower pole 5.5 mm solitary nonobstructing stone. No no additional urinary system stone seen in either kidney, ureters or bladder. Symmetric normal size of both kidneys. Multiple bilateral renal probable parapelvic cysts Larger compared to 2008.. Left renal hypodense lesions technically incompletely characterized but also likely cysts. No collecting system obstruction. Technically limited assessment for infection without contrast. Lymph nodes: No abdominal mesenteric, retroperitoneal or pelvic adenopathy. BOWEL AND PERITONEUM Bowel: Normal in caliber and wall thickness. Normal noninflamed appendix. Left and sigmoid colon diverticulosis without diverticulitis. No acute other significant gastrointestinal tract finding Free air or fluid: None. VASCULATURE Minimal atherosclerosis. No abdominal aortic aneurysm. PELVIS: Prostate and seminal vesicles within normal limits. Unremarkable thin-walled urinary bladder. BONES/SOFT TISSUES Multilevel minimal degenerative. No other significant or concerning musculoskeletal finding. Procedure Note Valeria Razo MD - 03/17/2025 [facility] [address] [place], [place] [address] Exam: CT abdomen and pelvis without contrast Exam Date/Time: 03/17/2025 1:04 PM Indication: 74 male. Bilateral flank pain Comparison: CT abdomen pelvis 01/29/2009 Technique: Computed tomography of the abdomen and pelvis was performedwithout contrast. A dose lowering technique was used for this procedure,which may include, but is not limited to, dose reduction technique,automated exposure control, the use of iterative reconstruction, and ALARA(As Low As Reasonably Achievable) / Image Gently techniques. CT findings: LOWER CHEST Normal cardiac size. No pericardial or pleural effusion. Lingular focalsubsegmental atelectasis. Subtle left inferior lower lobe bronchiolectasis and probably left greaterthan right subsegmental atelectasis. No convincing acute finding Limited noncontrast assessment of the soft tissues of viscera. UPPER ABDOMEN Liver and bile ducts: Unenhanced liver is unremarkable. Normal size andcontour. Lateral segment left hepatic lobe subcentimeter hypodensity,nonspecific and too small to characterize. No other focal finding. Nointra or extrahepatic biliary tree dilatation. Gallbladder: Cholecystectomy Pancreas: Unenhanced pancreas is unremarkable. Spleen: Unenhanced spleen is unremarkable RETROPERITONEUM Adrenals: Normal Kidneys left renal lower pole 5.5 mm solitary nonobstructing stone. No noadditional urinary system stone seen in either kidney, ureters orbladder. Symmetric normal size of both kidneys. Multiple bilateral renal probableparapelvic cysts Larger compared to 2008.. Left renal hypodense lesions technicallyincompletely characterized but also likely cysts. No collecting systemobstruction. Technically limited assessment for infection withoutcontrast. Lymph nodes: No abdominal mesenteric, retroperitoneal or pelvicadenopathy. BOWEL AND PERITONEUM Bowel: Normal in caliber and wall thickness. Normal noninflamed appendix.Left and sigmoid colon diverticulosis without diverticulitis. No acuteother significant gastrointestinal tract finding Free air or fluid: None. VASCULATURE Minimal atherosclerosis. No abdominal aortic aneurysm. PELVIS: Prostate and seminal vesicles within normal limits. Unremarkablethin-walled urinary bladder. BONES/SOFT TISSUES Multilevel minimal degenerative. No other significant or concerningmusculoskeletal finding. IMPRESSION: 1. No convincing acute other significant localizing abdominal pelvicprocess seen to provide a potential expiration for the patient's and. 2. Left renal solitary nonobstructing 5.5 mm stone 3. Bilateral renal parapelvic and parenchymal hypodense lesionsincompletely assessed without contrast but statistically most likelyrepresenting cysts.. 4. Colonic diverticulosis without diverticulitis . 5. Other nonemergent, incidental, stable and potential chronic findingsas discussed in the report body above. Ordered By: CARLOS EDUARDO BRADY Interpreted By: Valeria Razo MD, 03/17/2025 1:56 PM us Carlos Eduardo Brady MD CT Fin al Result * XR FOOT LT 3V (03/17/2025 12:56 PM CDT) Anatomical Region Laterality Modality Foot Radiographic Soni ging 03/26/2025 6:48 AM CDT Impressions 03/26/2025 6:49 AM CDT IMPRESSION: 1. No acute osseous abnormality. 2. Mild degenerative changes of the forefoot and midfoot. Referred By: Interpreted By: Buddy Weldon MD, 03/26/2025 6:48 AM Narrative 03/26/2025 6:49 AM CDT [address] [address] Examination: XR FOOT LT 3V Exam time: 03/17/2025 12:41 PM Indication: Left foot pain for one year. Comparison: None available Technique: 3 views of the left foot, 3 images. Findings: No evidence of fracture or dislocation. There are scattered mild degenerative changes of the forefoot and midfoot. Enthesopathic changes at the base of the fifth metatarsal. There is an os peroneum. Small Achilles enthesophyte. No ankle joint effusion. Procedure Note Buddy Weldon MD - 03/26/2025 [facility] [address] [place], [place] [address] Examination: XR FOOT LT 3V Exam time: 03/17/2025 12:41 PM Indication: Left foot pain for one year. Comparison: None available Technique: 3 views of the left foot, 3 images. Findings: No evidence of fracture or dislocation. There are scatteredmild degenerative changes of the forefoot and midfoot. Enthesopathicchanges at the base of the fifth metatarsal. There is an os peroneum.Small Achilles enthesophyte. No ankle joint effusion. IMPRESSION: 1. No acute osseous abnormality. 2. Mild degenerative changes of the forefoot and midfoot. Referred By: Interpreted By: Buddy Weldon MD, 03/26/2025 6:48 AM Carlos Eduardo Brady MD GENERAL IMAGING Fin al Result from Last [address] [place] [address] MEDICARE [facility] [employer] Care Teams Telesales Team Leader Relationship Specialty Start Date End Date Aldo De La Garza MD [address] [phone] PCP - General FAMILY PRACTICE 12/31/22
--- NOTE | 2025-04-08 13:02 | WPDANESEPPF ---
Anes - Initial Pre Proc Eval Procedure: Operation Date: 04/08/25 14:45 Proposed Procedures p Esophagogastroduodenoscopy EGD - Cal Dumont MD Date/Time: 04/08/25 13:02 Surgeon: Cal Dumont MD Pre Op Diagnosis: Dysphagia, unspecified Patient Data Age: 64 Gender: M Height: 1.83 m Weight: 109 kg Allergies Allergy/AdvReac Type Severity Reaction Status Date / Time No Known Allergies Allergy Verified 04/08/25 13:00 Home Medications ?Medication ?Instructions ?Recorded ?Confirmed ?Type empagliflozin 25 mg tablet 25 mg PO DAILY 05/15/23 03/30/25 History (Jardiance) gabapentin 100 mg capsule 100 mg PO DAILY 05/15/23 03/30/25 History insulin glargine 100 unit/mL (3 10 unit subcut QPM 05/15/23 03/30/25 History mL) subcutaneous pen (Lantus Solostar U-100 Insulin) polyethylene glycol 3350 17 gram 17 g PO .Q3Days #30 ea 05/15/23 03/30/25 Rx oral powder packet (Miralax) tamsulosin 0.4 mg capsule 0.4 mg PO DAILY 05/15/23 03/30/25 History atorvastatin 80 mg tablet 80 mg PO DAILY 02/27/24 03/30/25 History escitalopram oxalate 10 mg tablet 10 mg PO DAILY 02/27/24 03/30/25 History hydrocortisone acetate 25 mg 25 mg RECTAL DAILY PRN mucus in 08/27/24 03/30/25 Rx rectal suppository (Anusol-HC) stools #12 ea dulaglutide 1.5 mg/0.5 mL 1.5 mg subcut WEEKLY 11/11/24 03/30/25 History subcutaneous pen injector (Trulicity) omeprazole 20 mg capsule,delayed 20 mg PO DAILY 1 month #30 caps 03/04/25 03/30/25 Rx release clonazepam 0.5 mg tablet 0.5 mg PO PRN 03/30/25 03/30/25 History escitalopram oxalate 20 mg tablet 20 mg PO DAILY 03/30/25 03/30/25 History hydroxyzine pamoate 25 mg capsule 25 mg PO PRN sleep 03/30/25 03/30/25 History prazosin 2 mg capsule 2 mg PO QPM PRN sleep 03/30/25 03/30/25 History trazodone 50 mg tablet 50 mg PO QPM PRN sleep 03/30/25 03/30/25 History Patient hx anesthesia problems: none Family hx anesthesia problems: none Results Review: All pre-operative results and documents have been reviewed as part of the pre-operative evaluation. [facility] Past Medical History Medical History Diarrhea Abnormal CT scan Tenesmus Mucus in stool Borborygmi Bloating IBS (irritable bowel syndrome) Diabetes Surgical History Surgical History History of cholecystectomy Family History Family History Mother History of cancer of unknown primary site Diabetes mellitus Hypertension Social History Social History Smoking status: Never smoker Second hand tobacco smoke exposure: No Alcohol intake: never Substance use: never Substance use type: does not use Living arrangements: alone Occupation/Education: occupation Gender identity (if verbalized by the patient): Male Spiritual care concerns: No Anes - Eval Final PreProcedure Day of Procedure 04/08/25 13:02 Patient weight: obese Heart: regular rate and rhythm Lungs: clear to auscultation Airway: Mallampati scale class II Neurological: alert and oriented Last oral intake: >/= 8 hours ASA classification: III Emergent: no Anesthetic plan: proceed Anesthesia type and monitoring: general GIVS and standard monitoring Results Review: All pre-operative results and documents have been reviewed as part of the pre-operative evaluation. Informed Consent: The patient's anesthetic plan and its attendant risks and benefits were discussed with the patient/family/POA. Questions were solicited and answers provided to the satisfaction of the patient/family/POA.
[2025-04-08] MEDS: LACTATED RINGERS 1,000 ML 150 ML IV CONT (13:06)
[2025-04-08 13:09] VITALS: BP 113/78; PULSE 101; RESP 16; TEMP 36.1; O2SAT 96; BMI 32.4
--- NOTE | 2025-04-08 13:12 | PM.HPGS ---
History of Present Illness History of Present Illness Consent: Risks, benefits, and alternatives have been discussed and questions answered. Patient agrees to proceed with procedure. Chief complaint: Dysphagia, unspecified Narrative: Phillip Mercedes is a 64 year old male here to have another egd, few months ago was not completed because food in stomach. He has DM and IBS. Review of Systems Review of Systems: All systems reviewed & are unremarkable except as noted in HPI and below PMFSH Past Medical History Medical History Diarrhea Abnormal CT scan Tenesmus Mucus in stool Borborygmi Bloating IBS (irritable bowel syndrome) Diabetes Surgical History Surgical History History of cholecystectomy Family History Family History Mother History of cancer of unknown primary site Diabetes mellitus Hypertension Social History Social History Smoking status: Never smoker Second hand tobacco smoke exposure: No Alcohol intake: never Substance use: never Substance use type: does not use Living arrangements: alone Occupation/Education: occupation Gender identity (if verbalized by the patient): Male Spiritual care concerns: No Meds Home Medications and Allergies Home Medications ?Medication ?Instructions ?Recorded ?Confirmed ?Type empagliflozin 25 mg tablet 25 mg PO DAILY 05/15/23 04/08/25 History (Jardiance) gabapentin 100 mg capsule 100 mg PO DAILY 05/15/23 04/08/25 History insulin glargine 100 unit/mL (3 10 unit subcut QPM 05/15/23 04/08/25 History mL) subcutaneous pen (Lantus Solostar U-100 Insulin) polyethylene glycol 3350 17 gram 17 g PO .Q3Days #30 ea 05/15/23 04/08/25 Rx oral powder packet (Miralax) tamsulosin 0.4 mg capsule 0.4 mg PO DAILY 05/15/23 04/08/25 History atorvastatin 80 mg tablet 80 mg PO DAILY 02/27/24 04/08/25 History escitalopram oxalate 10 mg tablet 10 mg PO DAILY 02/27/24 04/08/25 History hydrocortisone acetate 25 mg 25 mg RECTAL DAILY PRN mucus in 08/27/24 03/30/25 Rx rectal suppository (Anusol-HC) stools #12 ea dulaglutide 1.5 mg/0.5 mL 1.5 mg subcut WEEKLY 11/11/24 03/30/25 History subcutaneous pen injector (Trulicity) omeprazole 20 mg capsule,delayed 20 mg PO DAILY 1 month #30 caps 03/04/25 04/08/25 Rx release clonazepam 0.5 mg tablet 0.5 mg PO PRN 03/30/25 03/30/25 History escitalopram oxalate 20 mg tablet 20 mg PO DAILY 03/30/25 04/08/25 History hydroxyzine pamoate 25 mg capsule 25 mg PO PRN sleep 03/30/25 04/08/25 History prazosin 2 mg capsule 2 mg PO QPM PRN sleep 03/30/25 03/30/25 History trazodone 50 mg tablet 50 mg PO QPM PRN sleep 03/30/25 03/30/25 History Allergies Allergy/AdvReac Type Severity Reaction Status Date / Time No Known Allergies Allergy Verified 04/08/25 13:00 Vital Signs Vital Signs - 24 hr 04/08/25 13:09 Temperature 97 F L Pulse Rate 101 H Respiratory Rate 16 Blood Pressure 113/78 Pulse Oximetry 96 Oxygen Delivery Room Air Exam Const: General: comfortable and no acute distress HENMT: Face/Nose/Sinus: Normal nares present Eyes: General: appearance normal, both eyes and all related structures Neck: Neck: no JVD Resp: Auscultation: clear to auscultation bilaterally Cardio: Rate: regular rate Rhythm: regular rhythm GI: Inspection: non-distended GI Palp: Yes Soft to palpation Skin: General skin exam: normal color Neuro: Speech: normal speech Extrem: General: normal to inspection Psych: Mental Status: mental status grossly normal Assessment and Plan Assessment and plan (1) Dysphagia: Code(s): R13.10 - Dysphagia, unspecified Status: Acute Assessment and Plan: egd (2) Bloating: Code(s): R14.0 - Abdominal distension (gaseous) Status: Acute
--- NOTE | 2025-04-08 13:19 | S_PTH ---
PATIENT: Phillip Mercedes LOC: [facility]#:[id number] AGE/SX: 64/M ROOM: RE04/08/[address]: Cal Dumont MD : 1960 BED: DIS: 04/08/2025 SPEC #: [id number] RECD: 04/08/25 14:11 STATUS: VELMA LINDSAY #: [id number] COLBY: 04/08/25 13:[address]: Cal Dumont DEPT: [facility] Surgical RECD BY: Monica Lange Tissues: A - Gastric Biopsy B - Small Bowel Bx Procedures: Hematoxylin and Eosin Stain Gross and Microscopic Level 4
[2025-04-08 13:24] VITALS: BP 108/70; PULSE 98; RESP 22; O2SAT 98
[2025-04-08 13:34] VITALS: BP 119/76; PULSE 97; RESP 22; O2SAT 99
[2025-04-08 13:44] VITALS: BP 125/82; PULSE 100; RESP 17; O2SAT 95
== END 2025-04-08 14:11 | disposition home or self-care (01) ==
PROVIDERS: Referring Provider Nurse Practitioner Family; Visit Provider Internal Medicine Gastroenterology
PROC: 0DJ08ZZ Inspection of Upper Intestinal Tract, Via Natural or Artificial Opening Endoscopic (ICD-10-PCS; CPT 43249; principal; 2025-04-08 14:45)
DX: K22.2 Esophageal obstruction (principal); K31.84 Gastroparesis; K21.9 Gastro-esophageal reflux disease without esophagitis; E11.9 Type 2 diabetes mellitus without complications; K58.9 Irritable bowel syndrome, unspecified; E66.9 Obesity, unspecified; Z68.32 Body mass index [BMI] 32.0-32.9, adult; Z79.84 Long term (current) use of oral hypoglycemic drugs; Z79.4 Long term (current) use of insulin; Z79.85 Long-term (current) use of injectable non-insulin antidiabetic drugs; Z90.49 Acquired absence of other specified parts of digestive tract; Z80.9 Family history of malignant neoplasm, unspecified
CPT/HCPCS: 43249; 43239; 82948; 88305; C1726; J2003; J2704; J7120

== ENCOUNTER 2025-05-03 07:15 | Outpatient (CLI) | payer MEDICARE, OTHER, SELFPAY ==
--- OUTSIDE RECORDS SUMMARY | 2025-04-19 10:50 | XMS_ITS ---
Author Organization [facility] Address [address] [place], [place] [id number] Care Team Providers Care Pediatric Clinical Nurse Specialist Name Role Phone CHANELL JIMÉNEZ Unavailable [phone] none, none Unavailable Unavailable Allergies No Known Allergies REASON FOR VISIT The patient has pain to the outside of both feet and the bottom of his heels for the past year. It is worse with initial step after periods of rest. He also has diabetic neuropathy and takes 600mg ofgabapentin daily for it Medications Medication SIG (Take, Route, Fr equency, Duration) Notes Start Date End Date Status Nabumetone 500 MG 1 tablet Orally Twic e a day; Duration: 14 days 04/19/2025 05/03/2025 Active Vital Signs Height 72 in 04/19/2025 Weight 240 lbs 04/19/2025 BMI 32.55 kg/m2 04/19/2025 Height-cm 182.88 cm 04/19/2025 Weight-kg 108.86 kg 04/19/2025 Encounters Encounter Location Date Provider Diagnosis [facility] [place] [address] [place], [place] [id number] 04/19/2025 CHANELL JIMÉNEZ Plantar fascial fibromatosis M72.2 ; Peroneal tendinitis, right leg M76.71 ; Peroneal tendinitis, left leg M76.72 and Type 2 diabetes mellitus with other diabetic neurological complication E11.49 Assessments Encounter Date Diagnosis (ICD Code) Assessment Notes Treatment Notes Treatment Clinical Notes Section Notes 04/19/2025 Plantar fascial fibromatosis (ICD-10 - M72.2) Plantar Fascitis: I discussed anti-inflammatory treatment options and various means of pronation control with the patient. I educated the patient on icing and stretching, supportive shoegear, and the use of orthotic devices. Order: Custom [place]otics from the [place] 04/19/2025 Peroneal tendinitis, right leg (ICD-10 - M76.71) Peroneal Tendonitis: I discussed anti-inflammatory treatment options and various means of immobilization with the patient. I educated the patient on icing and stretching, supportive shoegear, and the use of orthotic devices and bracing. Orthotic Recommendation: I recommended functional orthotics for the patient. 04/19/2025 Peroneal tendinitis, left leg (ICD-10 - M76.72) 04/19/2025 Type 2 diabetes mellitus with other diabetic neurological complication (ICD-10 - E11.49) Diabetic Foot Care: The patient was educated on diabetes and the lower extremity. The patient was instructed to check his feet daily to report any problems or signs of infection immediately. The patient was provided written information on Diabetic Foot Care as well as the Amputation Prevention Guide. B6 And B12: Recommend that the patient take over the counter Vitamin B6 and B12. B6 pills should be taken 2-3 times a day. Vitamin B12 should be taken once a day as an under the tongue lozenge. Plan Of Treatment Medication Medication Name Sig Start Date Stop Date Notes Nabumetone 500 MG 1 tablet Orally Twic e a day; Duration: 14 days 04/19/2025 05/03/2025 Treatment Notes Assessment Notes Plantar fascial fibromatosis Plantar Fascitis: I discussed anti-inflammatory treatment options and various means of pronation control with the patient. I educated the patient on icing and stretching, supportive shoegear, and the use of orthotic devices. Order: Custom [place]otics from the [place] Peroneal tendinitis, right leg Peroneal Tendonitis: I discussed anti-inflammatory treatment options and various means of immobilization with the patient. I educated the patient on icing and stretching, supportive shoegear, and the use of orthotic devices and bracing. Orthotic Recommendation: I recommended functional orthotics for the patient. Type 2 diabetes mellitus wit h other diabetic neurological complication Diabetic Foot Care: The patient was educated on diabetes and the lower extremity. The patient was instructed to check his feet daily to report any problems or signs of infection immediately. The patient was provided written information on Diabetic Foot Care as well as the Amputation Prevention Guide. B6 And B12: Recommend that the patient take over the counter Vitamin B6 and B12. B6 pills should be taken 2-3 times a day. Vitamin B12 should be taken once a day as an under the tongue lozenge. Next Appt Details Follow Up: 3 Weeks, Reason: See how relafen, better shoes, and inserts helped. Check status of orthotics from [place] Provider Name:CHANELL JIMÉNEZ, 04:10:00 PM, [address] [facility], [facility] [address], [place], [place], [id number], Progress Notes * Phillip WEATH[birth year]SDOB:[birth year] (64 yo M)Acc No.[id number]:04/19/2025 Progress Notes Patient: Phillip GARCIA Provider: Hayden Jiménez DPM :1960 A ge:64 Y S ex:Male Date:04/19/2025 Address:[address] [place] [address] , [id number] Subjective: * Chief Complaints: * 1 . The patient has pain to the outside of both feet and the bottom of his heels for the past year. It is worse with initial step after periods of rest. He also has diabetic neuropathy and takes 600mg of gabapentin daily for it. * HPI: H PI: New Complaint E stablished patient presents with a new complaint., Patient complains of an issue to left foot outside and right foot heel. patient states its very painful and hurts to walk. , Duration of problem is 1 year., MA: IR. * ROS: G eneral / Constitutional: Patient denies c hills, fever, weakness, night sweats. M usculoskeletal: Patient denies c hildhood foot problems, weakness. P atient complains of f lat feet/ planus, heel pain, arch pain. P eripheral Vascular: Patient denies u lceration of feet, cold extremities. ? S kin: Patient denies u lcerations, discoloration. ? N eurologic: Patient denies b alance difficulty, confusion, difficulty speaking, dizziness. P atient complains of b urning/ tingling, , numbness. * Medical History: M edical History Verified. * Family History: N o Family History documented.. * Medications: N one * Allergies: N .K.D.A. Objective: * Vitals: S hoe Size: 12, Wt:240lbs, Wt-k.86 kg, Ht: 72 in, Ht-cm: 182.88 cm, BMI:32.55Index, Body Surface Area: 2.35. * Examination: C onstitutional: Constitutional T he patient is awake, alert, well developed, well groomed and well nourished. D ermatologic: Skin findings: S kin is warm, dry, supple with no breaks in the skin. V ascular: Dorsalis pedis pulse: 2 /4, bilateral. Posterior tibial pulse: 2 /4, bilateral. Capillary refill: l ess than 3 seconds. Edema: N o edema, bilateral. N eurologic: Gross sensation G ross sensation is intact to light touch.? Paraesthesias throughout his feet. M usculoskeletal: Muscle Strength M uscle strength is 5/5 in regards to dorsiflexion, plantarflexion, inversion, and eversion in bilateral lower extremities. Pain on palpation b ase of the right 5th metatarsal, base of the left 5th metatarsal, peroneal tendons of the right foot., peroneal tendons of the left foot., medial band of the right plantar fascia near its attachment to the calcaneus, medial band of the left plantar fascia near its attachment to the calcaneus. Foot Structure T he foot structure is noted to be planus bilaterally. There is calcaneus valgus noted bilaterally. Assessment: * Assessment: 1. P lantar fascial fibromatosis - M72.2 (Primary) 2 . P eroneal tendinitis, right leg - M76.71 3 . P eroneal tendinitis, left leg - M76.72 ?4. T ype 2 diabetes mellitus with other diabetic neurological complication - E11.49 Plan: * Treatment: 2. P eroneal tendinitis, right leg Notes: Peroneal Tendonitis: I discussed anti-inflammatory treatment options and various means of immobilization with the patient. I educated the patient on icing and stretching, supportive shoegear, and the use of orthotic devices and bracing. Orthotic Recommendation: I recommended functional orthotics for the patient. 3. T ype 2 diabetes mellitus with other diabetic neurological complication Notes: Diabetic Foot Care: The patient was educated on diabetes and the lower extremity. The patient was instructed to check his feet daily to report any problems or signs of infection immediately. The patient was provided written information on Diabetic Foot Care as well as the Amputation Prevention Guide. B6 And B12: Recommend that the patient take over the counter Vitamin B6 and B12. B6 pills should be taken 2-3 times a day. Vitamin B12 should be taken once a day as an under the tongue lozenge. ? * Follow Up: 3 Weeks (Reason: See how relafen, better shoes, and inserts helped. [place] status of orthotics from [place]) * Billing Information: * Visit Code: * Procedure Codes: * Electronic signature of CHANELL JIMÉNEZ DPM on 05/03/2025 at 07:19 AM CDT Sign off status: Pending * Provider: Hayden Jiménez DPM Date: 0 04/19/2025 Generated for Argenis sandhu/oJse/Ibeth on: 1 07:19 AM CDT History and Physical Notes * HPI (History of Present Illness) Category Sub-Category Detail Notes Category Not es HPI New Complaint Established emilie ent presents with a new complaint., Patient complains of an issue to left foot outside and right foot heel. patient states its very painful and hurts to walk. , Duration of problem is 1 year., MA: IR Examination Category Sub-Category Detail Notes Category Not es Dermatologic Skin findings: Skin is warm, dr y, supple with no breaks in the skin Neurologic Gross sensation Gross sensation is intact to light touch. Paraesthesias throughout his feet Vascular Dorsalis pedis pulse: 2/4, bilateral Edema: No edema, bilateral Capillary refill: less than 3 seconds Posterior tibial pulse: 2/4, bilateral Musculoskeletal Muscle Strength Muscle strength is 5/5 in regards to dorsiflexion, plantarflexion, inversion, and eversion in bilateral lower extremities Pain on palpation base of the right 5t h metatarsal, base of the left 5th metatarsal, peroneal tendons of the right foot., peroneal tendons of the left foot., medial band of the right plantar fascia near its attachment to the calcaneus, medial band of the left plantar fascia near its attachment to the calcaneus Foot Structure The foot structure i s noted to be planus bilaterally. There is calcaneus valgus noted bilaterally Constitutional Constitutional The patient is a [place], alert, well developed, well groomed and well nourished
--- NOTE | ~2025-05-03 | NM_ITS ---
EXAM: NM gastric emptying study DATE: 05/03/2025 12:18 INDICATION: Type 2 diabetes mellitus without complications. TECHNIQUE: A gastric emptying study was performed using the methodology of Camryn DING, et al. J Nucl Med 2007; 48:568-572. The patient was given a meal consisting of 2 scrambled eggs labeled with 1.039 mCi Tc-99m sulfur colloid, 2 slices of toast, two packages of jam, and approximately 120 mL of water. Simultaneous anterior and posterior 1-min images of the abdomen were obtained with the patient supine at multiple time points over a total period of 4 hours. The geometric mean of anterior and posterior views was determined, and the percentage retention was calculated for each time point. COMPARISON: CT abdomen pelvis 09/23/2024 FINDINGS: Gastric retention of the radiotracer-labeled meal was 81%, 67%, and 49% at the 1-hour, 2-hour, and 4-hour time points, respectively. With this technique, apparent rapid gastric emptying is suggested by <30% gastric retention at 1 hour. Delayed gastric emptying is defined by gastric retention of >90% at 1 hour, >60% retention at 2 hours, or >10% retention at 4 hours. IMPRESSION: 1. Delayed gastric emptying. Reviewed, dictated and finalized at location E.
--- OUTSIDE RECORDS SUMMARY | 2025-05-03 07:19 | XMS_ITS | Clinical Summary ---
Author Organization [facility] [address] [employer] Address [address] [place] [address] Care Team Providers Care Test Department Helper Name Role Phone Aldo De La Garza MD Primary Care Provider [phone] Austyn FAY MD, Zachary Tono Unavailable [phone] Allergies No known active allergies Medications atorvastatin [...] Trulicity 0.75 mg/0.5 mL pen injector 4 Active escitalopram (LEXAPRO) 10 mg tablet 4 Active EPINEPHrine 0.3 mg/0.3 mL auto-injection syringeIndicati ons:Anaphylaxis Inject 0.3 mL (0.3 mg total) into the muscle as instructed as needed for anaphylaxis 1 each 1 4 Active allerg xt,D.farinae-D. pteronys 12 SQ-HDM tablet, sublingualIndic ations:House dust mite allergy Place 1 tablet under [...] for promotes mental health- once daily Active llhgt-[id number]-hnb-e zk-hi8-gco-astx 1,500-165-67.5 mg capsule Take 1 tablet/capsule by [...] meals He does not have SS Active HYDROcodone-leonard taminophen (NORCO) 7.5-325 mg per tabletIndicatio ns:Pain Take 1 tablet by mouth every 6 (six) hours as needed for pain 20 tablet 4 Active fluticasone propionate (FLONASE) 50 mcg/actuation nasal sprayIndication s:Gustatory rhinitis Administer 2 sprays into each nostril daily 1 each 3 4 Active cetirizine (ZyrTEC) 10 mg tabletIndicatio ns:Gustatory rhinitis Take 1 tablet (10 mg total) by mouth daily 30 tablet 3 4 05/25/20 25 Active eucalyptus/pepp ermint oil (PONARIS NASL) Administer into affected nostril(s) Active UNABLE TO FIND Basic care saline Alralol nasal wash Cecilio infused salt wash Active ipratropium (ATROVENT) 42 mcg (0.06 %) nasal sprayIndication s:Post-nasal drainage Administer 2 sprays into each nostril 3 (three) times a day 30 mL 3 5 Active Active Problems Problem Noted Date Diagnosed Date Post-nasal drainage 09/12/2024 Epistaxis 08/03/2024 Nasal crusting 08/03/2024 Hypertrophy of nasal turbinates 04/21/2024 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 House dust mite allergy 04/10/2024 Chronic pansinusitis 03/27/2024 Non-seasonal allergic rhinitis 03/27/2024 Deviated nasal septum 03/27/2024 Hypertrophy of both inferior nasal turbinates Surgical History Surgery Date Site/Laterality Comments REFRACTIVE SURGERY 07/22/1999 - 07/21/2000 Bilateral lasik CHOLECYSTECTOMY 07/22/2015 - 07/21/2016 COLONOSCOPY ESOPHAGOGASTRODUODENOSCOPY ANTERIOR CRUCIATE LIGAMENT REPAIR 07/22/1990 - 1 Right SINUS SURGERY 05/13/2024 Medical History Medical History Date Comments Diabetes Tinnitus HL (hearing loss) Sleep apnea not using cpap Hyperlipidemia Type 2 diabetes mellitus BPH (benign prostatic hyperplasia) Neuropathy Wears reading [...] on file Legal Sex Male 7:53 PM NURSING CENTER TUTOR Gender Identity Male 03/26/2025 1:57 PM CDT Sexual Orientation Not on file Obstetrics History Last Filed Vital Signs Vital Sign Reading Time Taken Comments Blood Pressure 128/84 05/13/2024 10:25 AM CDT Pulse 88 05/13/2024 10:25 AM CDT Temperature 36.1 C (97 F) 05/13/2024 9:40 AM CDT Respiratory Rate 18 09/12/2024 8:43 AM NURSING CENTER TUTOR Oxygen Saturation 92% 05/13/2024 10:25 AM CDT Inhaled Oxygen Concentration - - Weight 111.1 kg (245 lb) 09/12/2024 8:43 AM NURSING CENTER TUTOR Height 185.4 cm (6' 1) 09/12/2024 8:43 AM NURSING CENTER TUTOR Body Mass Index 32.32 09/12/2024 8:43 AM NURSING CENTER TUTOR Plan of Treatment Health Maintenance Due Date Last Done Comments Colon Cancer Screening-Colonoscopy 1960 Depression Screening 1960 Hepatitis C Screening 1960 Prostate Cancer Screening-PSA 1960 Pneumococcal vaccine 65+ (1 of 1 - PCV) 2009 Well Visit 65+ 2024 Covid-19 Vaccine (5 - 2024-2 6 season) 2025 07/08/2023, 06/13/2021, 11/04/2020, Additional history exists Influenza Vaccine (#1) 2025 , 05/22/2022, 06/14/2021, Additional history exists Fall Risk Assessment 05/13/2025 05/13/2024 DTaP/Tdap/Td Vaccine (3 - Td or Tdap) 09/15/2029 09/15/2019, 06/03/2017, 04/03/1999, Additional history exists Hepatitis B Screening Completed 08/11/2002 , 04/26/2002, 05/03/2001 Zoster Vaccine Completed 07/08/2023, 08/23, 09/15/2019, Additional history exists Medical Devices Implanted Type Area Program Director Scouting Device Identifier Shelf Expiration Date Model / Serial / Lot Dental Implant Mouth Description:[place] [address] [place] [address] MEDICARE FOR LIFE MEDICARE FOR LIFE Care Teams Test Department Helper Relationship Specialty Start Date End Date Aldo De La Garza MD PCP - General Family Medicine 02/13/24 Zachary Zaman II, MD [address] [place] [address] Consulting Physician Otolaryngology 04/30/24
--- OUTSIDE RECORDS SUMMARY | 2025-05-03 07:19 | XMS_ITS | Patient Health Record ---
Author Organization [facility] Address [address] [place], [place] [id number] Care Team Providers Care Motors Assembler Name Role Phone JESSY CHANELL Unavailable [phone] none, none Unavailable Unavailable Allergies No Known Allergies Reason For Referral No Information Medications Medication SIG (Take, Route, Fr equency, Duration) Notes Start Date End Date Status Nabumetone 500 MG 1 tablet Orally Twic e a day; Duration: 14 days 04/19/2025 05/03/2025 Active Vital Signs Height-cm 182.88 cm 04/19/2025 Weight-kg 108.86 kg 04/19/2025 Height 72 in 04/19/2025 Weight 240 lbs 04/19/2025 BMI 32.55 kg/m2 04/19/2025 Encounters Encounter Location Date Provider Diagnosis [facility] [place] [address] [place], [place] [id number] 04/19/2025 CHANELL JIMÉNEZ Plantar fascial fibromatosis M72.2 [...] orthotic devices. [facility] [place] 04/19/2025 Peroneal tendinitis, right leg (ICD-10 - [...] under the tongue lozenge. Plan Of Treatment Next Appt Details Provider Name:CHANELL JIMÉNEZ, 04:10:00 PM, [address] [facility], [place], [place], [id number],
--- OUTSIDE RECORDS SUMMARY | 2025-05-03 07:20 | XMS_ITS | Clinical Summary ---
Author Organization [facility] Address [address] [place] [id number] Care Team Providers Care Volunteer Assistant Name Role Phone Aldo De La Garza MD Primary Care Provider [phone]- [phone] Allergies No known active allergies Medications polyethylene [...] Date Tachycardia 01/09/2023 Type 2 diabetes mellitus 08/26/2022 Hyperlipidemia 09/15/2019 Encounters Date Type Department Care Team Description 04/13/2025 3:26 PM CDT - 04/13/2025 11:59 PM CDT Hospital Encounter [facility] [address] Carlos Eduardo Brady MD Discharge Disposition: Home or Self Care (Routine Discharge) 04/13/2025 Travel 03/17/2025 12:25 PM CDT - 03/17/2025 11:59 PM CDT Hospital Encounter [facility] [place] [address] Carlos Eduardo Brady MD Discharge Disposition: Home or Self Care (Routine Discharge) 03/17/2025 Travel from Last 3 Months Immunizations Immunization Administration [...] Care Team (Late st Contact Info) Description 05/10/2025 8:00 AM CDT Appointment [facility] [address] [facility] [address] Carlos Eduardo Brady MD [address] [place] [phone] 10/26/2025 11:00 AM CDT Office Visit [facility] - [facility] [address] [place] [phone] Luis Olguin DO [address] [place] [address] Health Maintenance Due Date Last Done Comments Colorectal Cancer Screening Colonoscopy (10 Years) 1959 Kidney Health Evaluation 1959 Lipid Panel 1959 Diabetes: Retinopathy Eye Exam 1977 Hepatitis C 1977 Pneumococcal Vaccine: 50+ Years (1 of 2 - PCV) 1978 RSV Immunization or 60+ Years (1 - Risk 60-74 years 1-dose series) 2019 PHQ-2 (Physician Norborne) 07/22/2024 Hemoglobin A1C 10/29/2024 04/30/2024 COVID-19 Vaccine (2024- season) 2025 06/13/2021, 11/04/2020, 10/14/2020 Influenza Adult (#1) 2025 05/22/2023, 05/22/2022, 06/14/2021, Additional history exists DTaP, Tdap and Td Vaccines (3 - [...] Procedure Name Priority Date/Time Associated Diagnosis Comments US RETROPERITONEAL COMP Routine 04/13/20 4:29 PM CDT Cyst of kidney, acquired CT ABD+PEL WO CON STAT 03/17/2025 1:0 4 PM CDT Bilateral flank pain Unspecified abdominal pain XR FOOT LT 3V Routine 03/17/2025 12:56 PM CDT Pain in left foot from Last 3 Months Results * US RETROPERITONEAL COMP (04/13/2025 4:29 PM CDT) Anatomical Region Laterality Modality Abdomen Ultrasound 04/14/2025 8:16 AM CDT Impressions 04/14/2025 12:39 PM CDT IMPRESSION: 1. There is an approximately 3 cm lobulated vascular area in the mid right kidney isoechoic to the renal parenchyma. On the immediately prior CT from 03/17/2025, intravenous contrast was not used which limits evaluation. On more remote prior CT from 01/29/2009 there may be some degree of lobulation within this area of the normal parenchyma, although this appears more focal and pronounced on recent examinations. Differential diagnosis would include prominent, Badi normal variant although other etiologies could not BE absolutely excluded. Could consider renal mass protocol CT or MRI for more definitive characterization to exclude a renal epithelial neoplasm if clinically indicated. 2. Nonobstructing 6 mm left renal calculi. 3. Bilateral renal cysts, several of which are parapelvic/peripelvic. This causes the artifactual appearance of right-sided hydronephrosis/pelvocaliectasis. On the left, without cine clip images, difficult to exclude definitive left-sided pelvocaliectasis, although left-sided findings are felt also likely to be due to parapelvic/peripelvic renal cyst rather than intrinsic hydronephrosis. 4. Urinary bladder is grossly unremarkable. 5. Bilateral renal cortical thinning and increased parenchymal echogenicity. This likely due to combination of senescent changes in chronic medical renal disease. Preliminary: Willie Bautista MD04/14/2025 12:03 PM The attending radiologist has reviewed the image(s) and agrees with the content of this report. Referred By: CARLOS EDUARDO BRADY Interpreted By: Willie Bautista MD, 04/14/2025 8:16 AM Narrative 04/14/2025 12:39 PM CDT [place] [address] EXAMINATION: Renal ultrasound. HISTORY: History of renal stones cysts. COMPARISON: 03/17/2025 CT abdomen 01/29/2009 CT. TECHNIQUE: Grayscale and color Doppler images of the kidneys and urinary bladder were obtained. FINDINGS: The right kidney measures 13.6 cm in length. Mild renal cortical thinning and increased parenchymal echogenicity. There are parapelvic/peripelvic renal cysts. No definite right-sided pelvocaliectasis. There is a questionable 3 cm lobulated vascular area within the mid portion of the right kidney (image 30). This is essentially isoechoic and has an appearance suggestive of a prominent column of Eduardo normal variant.. No right urolithiasis. The left kidney measures 14.3 cm in length. Mild renal cortical thinning and increased parenchymal echogenicity. There is a 1.9 cm and an additional 2.6 cm benign left hepatic cyst. There are additionally some left-sided parapelvic cysts. Without cine clips the provided, it is difficult to elucidate whether there is some degree of mild pelvocaliectasis concomitant. There is a nonobstructing 6 mm right renal calculi. Bilateral ureteral jets are seen. Urinary bladder is grossly unremarkable. Procedure Note Wayne Tilley MD - 04/14/2025 [facility] [address] [place] [address] EXAMINATION: Renal ultrasound. HISTORY: History of renal stones cysts. COMPARISON: 03/17/2025 CT abdomen 01/29/2009 CT. TECHNIQUE: Grayscale and color Doppler images of the kidneys and urinarybladder were obtained. FINDINGS: The right kidney measures 13.6 cm in length. Mild renal cortical thinningand increased parenchymal echogenicity. There are parapelvic/peripelvicrenal cysts. No definite right-sided pelvocaliectasis. There is aquestionable 3 cm lobulated vascular area within the mid portion of theright kidney (image 30). This is essentially isoechoic and has anappearance suggestive of a prominent column of Eduardo normal variant.. Noright urolithiasis. The left kidney measures 14.3 cm in length. Mild renal cortical thinningand increased parenchymal echogenicity. There is a 1.9 cm and anadditional 2.6 cm benign left hepatic cyst. There are additionally someleft-sided parapelvic cysts. Without cine clips the provided, it isdifficult to elucidate whether there is some degree of mildpelvocaliectasis concomitant. There is a nonobstructing 6 mm right renalcalculi. Bilateral ureteral jets are seen. Urinary bladder is grosslyunremarkable. IMPRESSION: 1. There is an approximately 3 cm lobulated vascular area in the mid rightkidney isoechoic to the renal parenchyma. On the immediately prior CT from03/17/2025, intravenous contrast was not used which limits evaluation. Onmore remote prior CT from 01/29/2009 there may be some degree of lobulationwithin this area of the normal parenchyma, although this appears morefocal and pronounced on recent examinations. Differential diagnosis wouldinclude prominent, Abdi normal variant although other etiologies couldnot BE absolutely excluded. Could consider renal mass protocol CT or MRIfor more definitive characterization to exclude a renal epithelialneoplasm if clinically indicated. 2. Nonobstructing 6 mm left renal calculi. 3. Bilateral renal cysts, several of which are parapelvic/peripelvic. Thiscauses the artifactual appearance of right-sidedhydronephrosis/pelvocaliectasis. On the left, without cine clip images,difficult to exclude definitive left-sided pelvocaliectasis, althoughleft-sided findings are felt also likely to be due toparapelvic/peripelvic renal cyst rather than intrinsic hydronephrosis. 4. Urinary bladder is grossly unremarkable. 5. Bilateral renal cortical thinning and increased parenchymalechogenicity. This likely due to combination of senescent changes inchronic medical renal disease. Preliminary: Willie Bautista MD04/14/2025 12:03 PM The attending radiologist has reviewed the image(s) and agrees with thecontent of this report. Referred By: CARLOS EDUARDO BRADY Interpreted By: Willie Bautista MD, 04/14/2025 8:16 AM us Carlos Eduardo Brady MD ULTRASOUND Fin al Result * CT ABD+PEL WO CON (03/17/2025 1:04 [...] in the report body above. Ordered By: OLUWADAMILOLA M ADEGBENRO Interpreted By: Valeria Razo MD, 03/17/2025 1:56 PM Narrative 03/17/2025 2:16 PM [address] [address] Exam: CT abdomen and pelvis without contrast [...] Procedure Note Valeria Razo MD - 03/17/2025 [facility] 1 [place], [place] [address] Exam: CT abdomen and pelvis without contrast [...] 6:48 AM Narrative 03/26/2025 6:49 AM CDT [address] [address] Examination: XR FOOT LT 3V Exam time: [...] Procedure Note Buddy Weldon MD - 03/26/[address] [address] Examination: XR FOOT LT 3V Exam time: [...] Result from Last [address] [place] [address] MEDICARE [facility] Care Teams Volunteer Assistant Relationship Specialty Start Date End Date Aldo De La Garza MD [address] [phone] PCP - General FAMILY PRACTICE 12/31/22
== END 2025-05-03 07:16 | disposition home or self-care (01) ==
PROVIDERS: Visit Provider Internal Medicine Gastroenterology
DX: E11.9 Type 2 diabetes mellitus without complications (principal); R13.10 Dysphagia, unspecified; R14.0 Abdominal distension (gaseous); K30 Functional dyspepsia
CPT/HCPCS: 78264; A9541